=== PATIENT | female | born 1955 | race Caucasian/White ===

== ENCOUNTER 2019-07-24 11:43 | Inpatient (IN) ==
[2019-07-24 13:40] LABS: Basophils # (auto) 0.03 K/uL (0-0.2); Basophils % (auto) 0.3 %; Eosinophils # (auto) 0.03 K/uL (0-0.5); Eosinophils % (auto) 0.3 %; Hematocrit (blood only) 39.8 % (37-47); Hemoglobin 13.5 g/dL (12.0-16.0); Immature Granulocytes # (auto) 0.02 K/uL (0.00-0.02); Immature Granulocytes % (auto) 0.2 %; Lymphocytes # (auto) 1.88 K/uL (1.2-3.4); Lymphocytes % (auto) 15.8 %; Mean Corpuscular Hemoglobin 30.9 pg (25-34); Mean Corpuscular Hgb Conc 33.9 g/dL (32-36); Mean Corpuscular Volume 91.1 fL (80-100); Monocytes # (auto) 0.99 K/uL (0.11-0.59); Monocytes % (auto) 8.3 %; Neutrophils # (auto) 8.97 K/uL (1.4-6.5); Neutrophils % (auto) 75.1 %; Platelet Count 385 K/uL (130-400); RDW Coefficient of Variation 12.3 % (11.5-14.5); RDW Standard Deviation 41.4 fL (36.4-46.3); Red Blood Count 4.37 M/uL (4.2-5.4); White Blood Count 11.92 K/uL (4.8-10.8)
[2019-07-24 13:50] LABS: Partial Thromboplastin Ratio 1.1; Partial Thromboplastin Time 28.7 Seconds (21.0-31.0); Prothrombin Time 10.4 Seconds (9.0-12.0)
[2019-07-24 13:54] LABS: Albumin Level 3.5 gm/dl (3.4-5.0); Calcium 9.1 mg/dl (8.5-10.1); Creatinine Clr Calc Pharmacy 71.9 ml/min; Est GFR (African American) 112.7; Est GFR (Non-African American) 97.3; Potassium 3.5 mmol/L (3.5-5.1)
[2019-07-24 14:00] LABS: Bilirubin,Total 0.7 mg/dl (0.2-1); Globulin 3.4 gm/dl (2.5-4.0); Total Protein 6.9 gm/dl (6.4-8.2)
[2019-07-24] MEDS ORDERED: CONSULT PHARMACY STA (15:40)
[2019-07-24] MEDS ORDERED: DAPTOMYCIN CONSULT ACTIVE PRN (15:45)
[2019-07-24] MEDS ORDERED: PIPERACILL/TAZOBAC CONSULT ACTIVE PRN (15:46)
[2019-07-24] MEDS ORDERED: DICYCLOMINE HCL 10 MG CAP PO PRN (15:48)
[2019-07-24] MEDS ORDERED: PIPERACILLIN/TAZOBACTAM 3.375 GM in DEXTROSE 5% 100 ML IV ONE (16:00)
--- NOTE | 2019-07-24 16:24 | Surgery Consultation ---
Date of Consultation July 24, 2019 Assessment & Plan (1) Stage III pressure ulcer of sacral region: 64y F with a PMH of lewy-body dementia, who has been wheel chair bound for 6mos and recently moved to SNF in May who presents with a progressively worsening sacral wound. Patient was seen in wound care clinic today where superficial debridement was performed, but due to deteriorating state thought patient would benefit from IV abx therapy as well as potential surgical debridement. On examination wound has necrotic tissue centrally, surrounding purulant exudate, and + tunneling. She will benefit from ongoing wound care consult during her admission. Continue IV abx, wound culture taken. Will discuss with Dr. Brasher potentially taking her to the OR this admission for debridement. For now make NPO at midnight if we decide to add her on for tomorrow. History of Present Illness Attending Physician: Robert Padilla MD History of Present Illness This is a 64y F with a PMH of lewy-body dementia, wheel chair bound over the past 6 mos, who presents as a direct admission to [facility] from the wound clinic with a sacral decubitus ulcer. Majority of HPI and ROS obtained from daughter. Apparently her sacral wound developed about 1 year ago. The daughter has some medical knowledge and was caring for it and got it to the point where she thought it was healed. In about march the wound re-presented and the patient since moved to [facility] in May. She was has been evaluated here by our wound clinic since 05/08/19. It has recently deteriorated since her last visit and the wound nurses thought the patient may benefit from surgical debridement and IV abx. Surgery was consulted upon admission for further evaluation. Dr Brasher-patient examined and daughter at the bedside. Patient has been going to the wound clinic since April with worsening decubitus ulcer now with open skin and significant undermining and bone exposed. This will require surgical debridement possibly more than once and wound VAC. Timing of surgery is unsure until we see what medical team and anesthesia feel about the patient's current status. He will need general anesthesia. I have discussed this with the patient's daughter and will also discussed this with her . I will also discussed this with the wound clinic. Allergies Allergy/AdvReac Type Severity Reaction Status Date / Time levofloxacin [From Levaquin] AdvReac Intermediate lethargy Verified 07/24/19 10:36 Home Medications Home Medications Medication Instructions Recorded Confirmed Type albuterol sulfate 90 mcg/actuation 2 puffs INH QID 05/08/19 07/24/19 History aerosol inhaler clobetasol 0.05 % topical foam 1 appln TOP BID 05/08/19 07/24/19 History dicyclomine 10 mg capsule 10 mg PO QID PRN cap 05/08/19 07/24/19 History fluocinonide 0.05 % topical cream 1 appln TOP BID 05/08/19 07/24/19 History montelukast 10 mg tablet 10 mg PO QPM 05/08/19 07/24/19 History pimavanserin 34 mg capsule 34 mg PO DAILY 05/08/19 07/24/19 History rivastigmine 4.6 mg/24 hour 4.6 mg TD DAILY 05/08/19 07/24/19 History transdermal patch sertraline 50 mg tablet 75 mg PO DAILY tab 05/08/19 07/24/19 History valsartan 160 mg tablet 160 mg PO PM 05/08/19 07/24/19 History cefdinir 300 mg capsule 300 mg PO BID #28 cap 07/16/19 07/24/19 Rx Patient History Medical History 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) HTN, goal to be determined (Chronic) Lewy body dementia (Chronic) Panic disorder (Chronic) Pressure ulcer of coccygeal region, stage 2 Surgical History H/O cosmetic surgery S/P hip replacement (Resolved) S/P tonsillectomy (Resolved) Status post appendectomy (Resolved) Social History Preferred Language: Algerian Communication Ability: Effective Visual Impairment: Partially Limited Hearing Ability: Cochlear Implant Beliefs That Will Affect Care: Gnosticism marital status: Current Living Situation: Spouse current occupational status: retired Other Information That Helps Us Care for You: No Feels Safe at Home: Yes Safety Concerns: Feels Safe At This Time Smoking Status: Former smoker Hx Alcohol Use: No Hx Substance Use: No Review of Systems Integumentary: + skin ulcer (sacral decubitus ulcer, worsening in condition) Physical Exam Physical Exam: awake Constitutional: + thin; no acute distress Respiratory: normal respiratory effort Skin: + ulcer (sacral decub, with inferior tunneling, surrounding erythema) sacral wound with central necrotic tissue and surrounding exudate Results & Data Vital Signs (Past 12 Hours) Vital Signs Temp Pulse Resp BP Pulse Ox 07/24/19 15:46 36.7 C 82 16 118/81 96 07/24/19 13:01 37.1 C 84 16 100/60 96 PG Care Time/CCT Total # of Minutes Spent Total Time Spent with Patient: Total time spent is greater than 50% in coordination of care (as documented) at patient's floor/unit and/or counseling patient:
--- NOTE | 2019-07-24 16:27 | History & Physical Report ---
Date of Service July 24, 2019 Assessment & Plan (1) Sacral wound: Pt is 64 y/o F with PMH dementia, HTN, sacral wound presented to hospital as direct admission from wound clinic for worsening sacral wound. Patient was seen in wound clinic today and noted to have worsening sacral wound and had area debrided, and was referred to hospital secondary to worsening and probable need for further debridement. Patient currently on cefdinir. 07/12/2018 buttock wound culture positive Enterobacter, MSSA. Pt afebrile, vitals stable. WBC: 11.9 L spine Xray: No acute fracture or subluxation of the lumbar spine. Age- indeterminate 20% anterior endplate compression deformity of T12. Pelvis Xray: No acute fracture, dislocation or bony erosion to suggest acute osteomyelitis. Demineralized appearance of the bones with partially obscured sacrum and coccyx limits the study. -Wound culture pending -Blood cultures pending -Hold oral cefdinir -Zosyn, daptomycin -NPO midnight -General surgery consult -Wound consult -Nutrition consult -CBC, BMP in am -May need to consider CT pelvis for further evaluation (2) Lewy body dementia: Pt at baseline mental status per family. Follows with Dr Guerrero. -Bite sized food, pt will need assistance with feeding. No h/o aspiration in past -PT/OT when appropriate -Continue rivastigmine, pimavanserin -Monitor for delirium (3) HTN, goal to be determined: -Continue valsartan -Monitor BP (4) Panic disorder: Follows with Dr Domínguez -Continue sertraline (5) Reactive airway disease: -Continue Singulair, albuterol DVT Prophylaxis -SCDs for now Full Code as per discussion with pt's and pt's daughter Follows with Dr Norman for routine care Pt was seen and care coordinated with Dr Padilla. See addendum History of Present Illness Chief Complaint: Worsening sacral wound Primary Care Provider: Luis Fernando Norman MD Pt is 64 y/o F with PMH dementia, HTN, sacral wound presented to hospital as direct admission from wound clinic for worsening sacral wound. History obtained from patient's and patient's records secondary to patient's history of dementia. Patient was seen in wound clinic today and noted to have worsening sacral wound and had area debrided, and was referred to hospital secondary to worsening and probable need for further debridement. Patient currently on cefdinir. 07/12/2018 buttock wound culture positive Enterobacter,MSSA. reports patient's temperature has been reported as normal at her personal mcc. Reports patient currently at her baseline mental status. States that patient able to eat and drink however has varying appetite and typically has poor appetite. Recently has started protein supplement daily. Denies any history of aspiration and reports pt on regular diet however patient needs food in bite size pieces and assistance with feeding. Reports pt bed bound and reports that have been attempting alternating position changes and offloading. States pt has been voicing back pain for a couple of months however unsure if pain in back or coming from sacral ulcer secondary to pt's dementia. Denies any known trauma/injury. Denies any recent reports of vomiting or diarrhea or noted SOB from personal care facility. Allergies Allergy/AdvReac Type Severity Reaction Status Date / Time levofloxacin [From Levaquin] AdvReac Intermediate lethargy Verified 07/24/19 10:36 Home Medications Home Medications Medication Instructions Recorded Confirmed Type albuterol sulfate 90 mcg/actuation 2 puffs INH QID 05/08/19 07/24/19 History aerosol inhaler clobetasol 0.05 % topical foam 1 appln TOP BID 05/08/19 07/24/19 History dicyclomine 10 mg capsule 10 mg PO QID PRN cap 05/08/19 07/24/19 History fluocinonide 0.05 % topical cream 1 appln TOP BID 05/08/19 07/24/19 History montelukast 10 mg tablet 10 mg PO QPM 05/08/19 07/24/19 History pimavanserin 34 mg capsule 34 mg PO DAILY 05/08/19 07/24/19 History rivastigmine 4.6 mg/24 hour 4.6 mg TD DAILY 05/08/19 07/24/19 History transdermal patch sertraline 50 mg tablet 75 mg PO DAILY tab 05/08/19 07/24/19 History valsartan 160 mg tablet 160 mg PO PM 05/08/19 07/24/19 History cefdinir 300 mg capsule 300 mg PO BID #28 cap 07/16/19 07/24/19 Rx lorazepam 0.5 mg PO BID PRN 07/24/19 07/24/19 History Past Med/Surg History Medical History 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) HTN, goal to be determined (Chronic) Lewy body dementia (Chronic) Panic disorder (Chronic) Pressure ulcer of coccygeal region, stage 2 Surgical History H/O cosmetic surgery S/P hip replacement (Resolved) S/P tonsillectomy (Resolved) Status post appendectomy (Resolved) Family History Other Coronary heart disease Social History Preferred Language: Faroese Communication Ability: Effective Visual Impairment: Partially Limited Hearing Ability: Cochlear Implant Beliefs That Will Affect Care: Hoahaoism marital status: Current Living Situation: Spouse current occupational status: retired Other Information That Helps Us Care for You: No Feels Safe at Home: Yes Safety Concerns: Feels Safe At This Time Smoking Status: Former smoker Do You Dip or Chew Tobacco: No ; Hx Alcohol Use: No Hx Substance Use: No Review of Systems Review of Systems: Unobtainable due to cognitive status Physical Exam Physical Exam: General: no acute distress, cachectic, chronically ill female Head: normocephalic, atraumatic Eyes: PERRL, EOM's intact, conjunctiva non-injected, anicteric ENT: normal inspection external ears, nose, mucous membranes moist Neck: supple, trachea midline, no apparent tenderness to palpation Lungs: clear, no respiratory distress, no wheezing/rhonchi/rales CV: RRR, no murmur, no pretibial edema Abd: normal BS, soft, non-tender Back: no discoloration, no apparent tenderness to palpation of spinal processes Ext: no cyanosis, no significant edema, pt extremities contracted Neuro: Alert, pleasant and cooperative Skin: warm, dry; sacrum +erythema with deep wound with suspected bone visible Results & Data Vital Signs (Past 12 Hours) Vital Signs Temp Pulse Resp BP Pulse Ox 07/24/19 15:46 36.7 C 82 16 118/81 96 07/24/19 13:01 37.1 C 84 16 100/60 96 Laboratory Results Short CBC 07/24/19 Range/Units 13:25 WBC 11.92 H (4.8-10.8) K/uL Hgb 13.5 (12.0-16.0) g/dL Hct 39.8 (37-47) % Plt Count 385 (130-400) K/uL BMP 07/24/19 13:25 Sodium 138 Potassium 3.5 Chloride 105 Carbon Dioxide 26 BUN 12 Creatinine 0.57 L Glucose 95 Calcium 9.1 Liver Function 07/24/19 Range/Units 13:25 Total Bilirubin 0.7 (0.2-1) mg/dl AST 11 L (15-37) U/L ALT 13 (12-78) U/L Alkaline Phosphatase 63 (45-117) U/L Albumin 3.5 (3.4-5.0) gm/dl Diagnostic Findings L Spine Xray: IMPRESSION: 1. No acute fracture or subluxation of the lumbar spine. 2. Age-indeterminate 20% anterior endplate compression deformity of T12. 3. Demineralized appearance of the bones with degenerative changes as above. Pelvis Xray: IMPRESSION: 1. No acute fracture, dislocation or bony erosion to suggest acute osteomyelitis. 2. Demineralized appearance of the bones with partially obscured sacrum and coccyx limits the study. If there is further clinical concern for possible under lying acute osteomyelitis, CT of the pelvis would have a greater sensitivity. Supervising Physician Co-Signing Physician Notes HISTORY: Record reviewed. Patient interviewed and examined. Care coordinated with Elana Truong PA-C. Please refer to her documentation for complete history. Briefly, 64-year-old female with history of Lewy body dementia and other problems. Currently living in a personal mcc ([facility]); essentially bed bound. Admitted for worsening sacral decubitus ulcer. EXAM: General- no distress Lungs- clear to auscultation; no respiratory distress Cardiovascular- RRR; no murmur; no gallop; no JVD; no pretibial edema Abdomen- + bowel sounds, soft, nontender Extremities- no cyanosis; no calf tenderness Neuro- alert, oriented to person and hospital; moderate cogwheel rigidity of upper extremities Skin- sacral decubitus ulcer, about 2 cm, at least stage III, surrounding erythema DATA: WBC 11,920 Other lab studies as noted. ASSESSMENT AND PLAN: Decubitus sacral ulcer. IV antibiotics. Consult Wound Care Nursing and General Surgery. Reposition at least q 2 hours. Lewy body dementia. Avoid anticholinergic and antipsychotic meds. PT / OT as tolerated. Please refer to SCOTT Truong's documentation for discussion of other issues.
[2019-07-24] MEDS: DAPTOmycin 200 MG in SYRINGE 0 ML IV SCH (16:45)
[2019-07-24] MEDS: ALBUTEROL HFA 8 GM INHALER INH SCH ×2 (16:46→20:05)
--- NOTE | 2019-07-24 17:54 | XRay Report ---
XR pelvis 1-2V routine HISTORY: 64 years-old Female sacral ulcer, r/o osteo acute sacral decubitus ulcer COMPARISON: None available TECHNIQUE: AP view of the pelvis FINDINGS: Demineralized appearance of the bones. Moderate left hip osteoarthritis. Right hip total joint arthro plasty. Degenerative changes of the lumbar spine. Pelvic basin calcifications suggest phleboliths. Sa dixie is partially obscured by gas within the sigmoid and rectum. No definitive bony erosion. No acute fracture or dislocation. IMPRESSION: 1. No acute fracture, dislocation or bony erosion to suggest acute osteomyelitis. 2. Demineralized appearance of the bones with partially obscured sacrum and coccyx limits the study. If there is further clinical concern for possible underlying acute osteomyelitis, CT of the pelvis wo uld have a greater sensitivity. The above report was generated using voice recognition software. It may contain grammatical, syntax o r spelling errors. Electronically signed by: Maurice Bianchi M.D. 07/24/2019 5:53 PM
--- NOTE | 2019-07-24 17:56 | XRay Report ---
XR lumbar spine 2-3V HISTORY: 64 years-old Female c/o back pain, has sacral ulcer acute pelvic and low back pain COMPARISON: Radiographs of the pelvis of same day TECHNIQUE: 4 views of the lumbar spine FINDINGS: Demineralized appearance of the bones. Right hip total joint arthroplasty. 20% anterior endplate comp ression deformity of the T12 vertebral body without retropulsion. No acute fracture or subluxation of the lumbar spine. Mostly mild multilevel disc space narrowing with multilevel moderate to severe fac et arthrosis and minimal spondylitic spurring. Calcified plaque of the abdominal aorta. IMPRESSION: 1. No acute fracture or subluxation of the lumbar spine. 2. Age-indeterminate 20% anterior endplate compression deformity of T12. 3. Demineralized appearance of the bones with degenerative changes as above. The above report was generated using voice recognition software. It may contain grammatical, syntax o r spelling errors. Electronically signed by: Maurice Bianchi M.D. 07/24/2019 5:55 PM
[2019-07-24] MEDS: MONTELUKAST SODIUM 10 MG TABLET PO SCH (20:04)
[2019-07-24] MEDS: VALSARTAN 80 MG TAB PO SCH (20:04)
[2019-07-24] MEDS: ACETAMINOPHEN 325 MG TAB PO PRN (20:08)
[2019-07-24] MEDS ORDERED: LORazepam 0.5 MG TAB PO PRN (20:28)
--- NOTE | 2019-07-24 20:49 | Anesthesiology Consultation ---
Date of Service July 24, 2019 Assessment & Plan (1) Encounter for pre-operative examination: Chart Review Chart Review: Acceptable Risk for Surgery and Patient NOT seen in Pre Admission Testing consent obtained by patients . all questions answered Consults Requested none History Height/Weight Height: 5 ft 4 in Weight: 46.3 kg Allergies Allergy/AdvReac Type Severity Reaction Status Date / Time levofloxacin [From Levaquin] AdvReac Intermediate lethargy Verified 07/24/19 10:36 Medications Home Medications Medication Instructions Recorded Confirmed Last Taken albuterol sulfate 90 mcg/actuation 2 puffs INH QID 05/08/19 07/24/19 07/24/19 09:00 aerosol inhaler clobetasol 0.05 % topical foam 1 appln TOP BID 05/08/19 07/24/19 Unknown dicyclomine 10 mg capsule 10 mg PO QID PRN cap 05/08/19 07/24/19 07/24/19 09:00 fluocinonide 0.05 % topical cream 1 appln TOP BID 05/08/19 07/24/19 Unknown montelukast 10 mg tablet 10 mg PO QPM 05/08/19 07/24/19 07/23/19 20:00 pimavanserin 34 mg capsule 34 mg PO DAILY 05/08/19 07/24/19 07/24/19 09:00 rivastigmine 4.6 mg/24 hour 4.6 mg TD DAILY 05/08/19 07/24/19 07/24/19 09:00 transdermal patch sertraline 50 mg tablet 75 mg PO DAILY tab 05/08/19 07/24/19 07/24/19 09:00 valsartan 160 mg tablet 160 mg PO PM 05/08/19 07/24/19 07/23/19 20:00 cefdinir 300 mg capsule 300 mg PO BID #28 cap 07/16/19 07/24/19 07/23/19 20:00 lorazepam 0.5 mg PO BID PRN 07/24/19 07/24/19 Unknown Active Medications Generic Name Dose Route Start Last Admin Trade Name Freq PRN Reason Stop Dose Admin Acetaminophen 650 mg 07/24/19 12:42 07/24/19 20:08 Tylenol PO 08/23/19 12:41 650 mg Q4H PRN Administration Pain or Fever Albuterol 2 puffs 07/24/19 17:00 07/24/19 20:05 Ventolin Hfa INH 08/23/19 16:59 2 puffs QID PEGGY Administration Dicyclomine HCl 10 mg 07/24/19 15:48 07/24/19 20:05 Bentyl PO 08/23/19 15:47 10 mg QID PRN Administration Abdominal Pain Daptomycin 200 mg/ Syringe 4 mls @ 2 mls/min 07/24/19 16:30 07/24/19 16:45 IV 08/03/19 16:29 2 mls/min DAILY@1600 PEGGY Administration Protocol Miscellaneous 1 ea 07/24/19 18:00 07/24/19 16:46 Order Awaiting Action N/A 08/23/19 17:59 Not Given QS PEGGY Miscellaneous 1 ea 07/24/19 16:00 07/24/19 16:19 Order Awaiting Action N/A 08/23/19 15:59 Not Given QS PEGGY Montelukast Sodium 10 mg 07/24/19 21:00 07/24/19 20:04 Singulair PO 08/23/19 20:59 10 mg QPM PEGGY Administration Valsartan 160 mg 07/24/19 21:00 07/24/19 20:04 Diovan PO 08/23/19 20:59 160 mg PM PEGGY Administration Past Medical History Medical History 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) HTN, goal to be determined (Chronic) Lewy body dementia (Chronic) Panic disorder (Chronic) Pressure ulcer of coccygeal region, stage 2 Exercise / Class Metabolic Activity IV < 2 Limit ADL/Bedbound Past Family History Family History Other Coronary heart disease Past Surgical History Surgical History H/O cosmetic surgery S/P hip replacement (Resolved) S/P tonsillectomy (Resolved) Status post appendectomy (Resolved) Past Anesthesia History No Hx of Anesthesia Complications and No Family Hx of Anesthesia Complications History of PONV No Hx of PONV and No Hx of Motion Sickness Social History Smoking Status: Former smoker Do You Dip or Chew Tobacco: No Hx Alcohol Use: No Hx Substance Use: No Physical Exam Vital Signs Last Vital Signs Temp 36.9 C 07/24/19 19:09 Pulse 87 07/24/19 19:09 Resp 16 07/24/19 19:09 BP 125/83 07/24/19 19:09 Pulse Ox 97 07/24/19 19:09 Constitutional + cachectic and + altered mental status ENMT Mouth: + TMJ abnormality and + dental restorations Thyromental Distance: < 3.5 Finger Breadths Mallampati Class: III Respiratory normal respiratory effort Auscultation: lungs clear to auscultation bilaterally Cardiovascular Rate/Rhythm: regular rate and regular rhythm Musculoskeletal Extremities: + limited ROM of extremities; + extremities abnormal to inspection pt with contractures Neurologic moves all extremities Motor/Sensory: + sensory deficit Psychiatric Orientation: alert; + not oriented x 3 Testing Laboratory Results 07/24/19 13:25 07/24/19 13:25 PT 10.4 Seconds (9.0-12.0) 07/24/19 13:25 INR 1.0 (0.9-1.1) 07/24/19 13:25 APTT 28.7 Seconds (21.0-31.0) 07/24/19 13:25
[2019-07-24] MEDS: PIPERACILLIN/TAZOBACTAM 3.375 GM in DEXTROSE 5% 100 ML IV SCH (21:06)
[2019-07-25] MEDS: PIPERACILLIN/TAZOBACTAM 3.375 GM in DEXTROSE 5% 100 ML IV SCH ×3 (05:47→21:38)
--- NOTE | 2019-07-25 06:21 | Surgery Progress Note ---
Date of Service July 25, 2019 Subjective resting comfortably- min pain not on OR schedule yet- will discuss with wound clinic this am, possibly plastics will decide this am- may take to OR tomorrow- NPO for now Results & Data Vital Signs (Past 12 Hours) Vital Signs Temp Pulse Pulse Resp BP BP Pulse Ox 07/25/19 04:20 36.7 C 65 16 121/69 93 07/24/19 23:22 37.0 C 85 20 161/89 H 94 07/24/19 22:20 93 H 07/24/19 19:09 36.9 C 87 16 125/83 97 PG Care Time/CCT Total # of Minutes Spent Total Time Spent with Patient: Total time spent is greater than 50% in coordination of care (as documented) at patient's floor/unit and/or counseling patient:
--- NOTE | 2019-07-25 06:34 | Surgery Progress Note ---
Date of Service July 25, 2019 Subjective awake, alert- looks normal had some mild pain- given Morphine abd distended- some bs but decreased check film- discussed benefit of NG- refuses I don't think he's progressed much, check labs Results & Data Vital Signs (Past 12 Hours) Vital Signs Temp Pulse Pulse Resp BP BP Pulse Ox 07/25/19 04:20 36.7 C 65 16 121/69 93 07/24/19 23:22 37.0 C 85 20 161/89 H 94 07/24/19 22:20 93 H 07/24/19 19:09 36.9 C 87 16 125/83 97 PG Care Time/CCT Total # of Minutes Spent Total Time Spent with Patient: Total time spent is greater than 50% in coordination of care (as documented) at patient's floor/unit and/or counseling patient:
[2019-07-25 07:27] LABS: Hematocrit (blood only) 37.3 % (37-47); Hemoglobin 12.8 g/dL (12.0-16.0); Mean Corpuscular Hemoglobin 30.5 pg (25-34); Mean Corpuscular Hgb Conc 34.3 g/dL (32-36); Mean Corpuscular Volume 88.8 fL (80-100); Mean Platelet Volume 8.2 fL (7.4-10.4); Platelet Count 358 K/uL (130-400); RDW Coefficient of Variation 12.5 % (11.5-14.5); RDW Standard Deviation 39.8 fL (36.4-46.3); White Blood Count 12.17 K/uL (4.8-10.8)
[2019-07-25 07:58] LABS: BUN Creatinine Ratio 14.1 (10-20); Calcium 9.5 mg/dl (8.5-10.1); Creatinine Clr Calc Pharmacy 68.6 ml/min; Est GFR (African American) 111.5; Est GFR (Non-African American) 96.2; Potassium 3.4 mmol/L (3.5-5.1)
[2019-07-25] MEDS: SERTRALINE HCL 50 MG TABLET PO SCH (08:29)
[2019-07-25] MEDS: ALBUTEROL HFA 8 GM INHALER INH SCH ×4 (08:30→20:18)
[2019-07-25] MEDS ORDERED: IOVERSOL 100ml IV PRN (09:03)
--- NOTE | 2019-07-25 09:24 | CT Scan Report ---
CT SCAN OF THE PELVIS WITH IV CONTRAST CLINICAL HISTORY: Sacral decubitus ulcer. COMPARISON STUDY: Pelvic radiograph dated 07/24/2019. TECHNIQUE: CT scan of the pelvis is performed 4 the pelvic inlet to the proximal femora following the IV administration of 94 cc of Optiray 320. Images are reviewed in the axial, sagittal, and coronal p lanes. IV contrast was administered without complication. A dose lowering technique was utilized adh ering to the principles of ALARA. The examination is significantly degraded by streak artifact from a right hip arthroplasty. CT DOSE: 361.58 mGy.cm FINDINGS: The skeletal structures are osteopenic. A right hip arthroplasty is in place. Advanced arthritic rico ge is noted in the left hip. Degenerative sclerosis is noted in the sacroiliac joints, right greater than left. Lumbosacral spondylosis is partially imaged. No lytic or blastic lesion is identified. The re is no bony erosion or periostitis identified. There is infiltration of the soft tissues overlying the sacrum with associated dermal thickening. A small focus of subcutaneous gas is seen on image #421 . No organized fluid collection is clearly identified. There is symmetric atrophy of the regional mus culature. Evaluation of the pelvis is significantly degraded by streak artifact from a right hip arthroplasty. The bladder is partially decompressed around a Salmeron catheter. Foci of intraluminal gas are noted. Th e bladder wall appears thickened and hyperemic. The uterus and adnexa are normal as visualized. There is no pelvic sidewall or inguinal adenopathy. The iliac vessels are patent. Atherosclerotic calcific ation is noted in the distal abdominal aorta. Visualized loops of small bowel and colon are normal in caliber. IMPRESSION: 1. There is induration/inflammation of the soft tissues overlying the sacrum with associated dermal t hickening. This is consistent with cellulitis and the reported history of a sacral decubitus ulcer. 2. No organized fluid collection is identified to suggest abscess. 3. No bony erosion or periostitis is clearly seen in the underlying sacrum to indicate osteomyelitis. 4. The bladder wall appears thickened and hyperemic. Correlate clinically and with urinalysis for christ dence of cystitis. 5. Additional findings as above. Electronically signed by: Osbaldo Davidson M.D. 07/25/2019 9:23 AM
[2019-07-25] MEDS: PIMAVANSERIN TARTRATE 34 MG PO SCH (09:46)
[2019-07-25] MEDS: RIVASTIGMINE 4.6 MG/24 HR TD SCH (09:46)
[2019-07-25] MEDS: REMOVE RIVASTIGMINE PATCH SCH (09:46)
--- NOTE | 2019-07-25 10:47 | Infectious Disease Consult ---
Date of Consultation July 25, 2019 Assessment & Plan (1) Sacral wound: 64-year-old female with a large poorly healing sacral decubitus ulcer, now awaiting surgical debridement. Previous cultures positive for Enterobacter and methicillin sensitive staph aureus. Pending further culture results and operative findings, current antibiotics appropriate. Will adjust once culture results are available. Length of IV antibiotics yet to be determined. Will follow. History of Present Illness Reason for Consultation: Sacral wound Attending Physician: Coby Flores MD History of Present Illness 64-year-old female with history of hypertension, dementia, who is had 1+ month history of poorly healing sacral decubitus ulcer. Being followed at the wound care center. Previous cultures were positive for Enterobacter and methicillin sensitive staph aureus, and patient has been on oral Omnicef. However was seen at the wound care center and was noted to have significant deterioration, and was admitted to the hospital for IV antibiotics and probable surgical debridement. No report of significant fever, chills, or other new systemic complaints. Currently patient states she is comfortable, pain-free, and is afebrile. Cultures are pending. CT scan of the pelvis shows large decubitus ulcer, no obvious abscess or osteomyelitis. Currently being treated empirically with daptomycin and Zosyn. Allergies Allergy/AdvReac Type Severity Reaction Status Date / Time levofloxacin [From Levaquin] AdvReac Intermediate lethargy Verified 07/24/19 10:36 Home Medications Home Medications Medication Instructions Recorded Confirmed Type albuterol sulfate 90 mcg/actuation 2 puffs INH QID 05/08/19 07/24/19 History aerosol inhaler clobetasol 0.05 % topical foam 1 appln TOP BID 05/08/19 07/24/19 History dicyclomine 10 mg capsule 10 mg PO QID PRN cap 05/08/19 07/24/19 History fluocinonide 0.05 % topical cream 1 appln TOP BID 05/08/19 07/24/19 History montelukast 10 mg tablet 10 mg PO QPM 05/08/19 07/24/19 History pimavanserin 34 mg capsule 34 mg PO DAILY 05/08/19 07/24/19 History rivastigmine 4.6 mg/24 hour 4.6 mg TD DAILY 05/08/19 07/24/19 History transdermal patch sertraline 50 mg tablet 75 mg PO DAILY tab 05/08/19 07/24/19 History valsartan 160 mg tablet 160 mg PO PM 05/08/19 07/24/19 History cefdinir 300 mg capsule 300 mg PO BID #28 cap 07/16/19 07/24/19 Rx lorazepam 0.5 mg PO BID PRN 07/24/19 07/24/19 History Patient History Medical History 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) HTN, goal to be determined (Chronic) Lewy body dementia (Chronic) Panic disorder (Chronic) Pressure ulcer of coccygeal region, stage 2 Surgical History H/O cosmetic surgery S/P hip replacement (Resolved) S/P tonsillectomy (Resolved) Status post appendectomy (Resolved) Family History Other Coronary heart disease Social History Preferred Language: Swedish Communication Ability: Effective Visual Impairment: Partially Limited Hearing Ability: Cochlear Implant Beliefs That Will Affect Care: Presybeterian marital status: Current Living Situation: Spouse current occupational status: retired Other Information That Helps Us Care for You: No Feels Safe at Home: Yes Safety Concerns: Feels Safe At This Time Smoking Status: Former smoker Do You Dip or Chew Tobacco: No ; Hx Alcohol Use: No Hx Substance Use: No Review of Systems Review of Systems: All systems reviewed & are unremarkable except as noted in HPI & below Physical Exam Constitutional: WD/WN, vitals as above no acute distress Eyes: PERRL, conjunctivae normal, anicteric sclerae ENMT: external ear and nose normal, oropharynx normal Neck: trachea midline, no thyromegaly neck nontender Respiratory: normal respiratory effort, lungs clear to auscultation no respiratory distress Cardiovascular: RRR, no murmur, no edema Heart Sounds: no gallop and no cardiac rub Gastrointestinal (Abdomen): normal bowel sounds, soft, nontender, no hepatosplenomegaly Musculoskeletal: Head/Neck/Chest: normocephalic, head atraumatic and neck supple Skin: no rashes, warm and dry + wound (Large sacral decubitus ulcer with some purulent debris) Neurologic: moves all extremities and awake; no meningeal signs Psychiatric: A+Ox3, euthymic affect Lymphatic: no cervical or axillary lymphadenopathy no inguinal lymphadenopathy Results & Data Vital Signs (Past 12 Hours) Vital Signs Temp Pulse Resp BP Pulse Ox 07/25/19 07:28 36.9 C 95 H 16 152/78 H 95 07/25/19 04:20 36.7 C 65 16 121/69 93 07/24/19 23:22 37.0 C 85 20 161/89 H 94 Laboratory Results Short CBC 07/24/19 07/25/19 Range/Units 13:25 07:11 WBC 11.92 H 12.17 H (4.8-10.8) K/uL Hgb 13.5 12.8 (12.0-16.0) g/dL Hct 39.8 37.3 (37-47) % Plt Count 385 358 (130-400) K/uL BMP 07/24/19 07/25/19 13:25 07:11 Sodium 138 137 Potassium 3.5 3.4 L Chloride 105 105 Carbon Dioxide 26 25 BUN 12 8 Creatinine 0.57 L 0.59 L Glucose 95 108 H Calcium 9.1 9.5 Liver Function 07/24/19 Range/Units 13:25 Total Bilirubin 0.7 (0.2-1) mg/dl AST 11 L (15-37) U/L ALT 13 (12-78) U/L Alkaline Phosphatase 63 (45-117) U/L Albumin 3.5 (3.4-5.0) gm/dl Diagnostic Findings Microbiology 07/24/19 16:15 Sacrum Gram Stain - Final CT SCAN OF THE PELVIS WITH IV CONTRAST CLINICAL HISTORY: Sacral decubitus ulcer. COMPARISON STUDY: Pelvic radiograph dated 07/24/2019. TECHNIQUE: CT scan of the pelvis is performed 4 the pelvic inlet to the proximal femora following the IV administration of 94 cc of Optiray 320. Images are reviewed in the axial, sagittal, and coronal planes. IV contrast was administered without complication. A dose lowering technique was utilized adhering to the principles of ALARA. The examination is significantly degraded by streak artifact from a right hip arthroplasty. CT DOSE: 361.58 mGy.cm FINDINGS: The skeletal structures are osteopenic. A right hip arthroplasty is in place. Advanced arthritic change is noted in the left hip. Degenerative sclerosis is noted in the sacroiliac joints, right greater than left. Lumbosacral spondylosis is partially imaged. No lytic or blastic lesion is identified. There is no bony erosion or periostitis identified. There is infiltration of the soft tissues overlying the sacrum with associated dermal thickening. A small focus of rankin bcutaneous gas is seen on image #421. No organized fluid collection is clearly identified. There is symmetric atrophy of the regional musculature. Evaluation of the pelvis is significantly degraded by streak artifact from a right hip arthroplasty. The bladder is partially decompressed around a Salmeron catheter. Foci of intraluminal gas are noted. The bladder wall appears thickened and hyperemic. The uterus and adnexa are normal as visualized. There is no pelvic sidewall or inguinal adenopathy. The iliac vessels are patent. Atherosclerotic calcification is noted in the distal abdominal aorta. Visualized loops of small bowel and colon are normal in caliber. IMPRESSION: 1. There is induration/inflammation of the soft tissues overlying the sacrum with associated dermal thickening. This is consistent with cellulitis and the reported history of a sacral decubitus ulcer. 2. No organized fluid collection is identified to suggest abscess. 3. No bony erosion or periostitis is clearly seen in the underlying sacrum to indicate osteomyelitis. 4. The bladder wall appears thickened and hyperemic. Correlate clinically and with urinalysis for evidence of cystitis. 5. Additional findings as above. Electronically signed by: Osbaldo Davidson M.D. 07/25/2019 9:23 AM Dictated: 07/25/19 0912 PG Care Time/CCT Total # of Minutes Spent Total Time Spent with Patient: Total time spent is greater than 50% in coordination of care (as documented) at patient's floor/unit and/or counseling patient:
[2019-07-25] MEDS: DAPTOmycin 200 MG in SYRINGE 0 ML IV SCH (15:55)
--- NOTE | 2019-07-25 16:53 | Hospitalist Progress Note ---
Date of Service July 25, 2019 Assessment & Plan (1) Sacral wound: Pt is 64 y/o F with PMH dementia, HTN, sacral wound presented to hospital as direct admission from wound clinic for worsening sacral wound. 07/12/2018 buttock wound culture positive Enterobacter, MSSA. L spine Xray: No acute fracture or subluxation of the lumbar spine. Age- indeterminate 20% anterior endplate compression deformity of T12. Pelvis Xray: No acute fracture, dislocation or bony erosion to suggest acute os teomyelitis. Demineralized appearance of the bones with partially obscured sacrum and coccyx limits the study. -Wound culture ordered: pin point growth -reincubating -on IV Zosyn, daptomycin -appreciate input from ID Dr Browne -General surgery consulted -CT of pelvis shows -sacral decubitus ulcer /no evidence of osteomyelitis /no fluid collection suggestive of abscess -pt is continued with broad spectrum IV abx may need fpc IV Abx -will follow ID recommendation wound care consulted DYSPHAGIA /ASPIRATION : due to advanced Dementia Pt noted to have glenn aspiration during meal -coughing with food ordered speech eval pt will be kept NPO till speech eval ( very high risk for aspiration ) (2) Lewy body dementia: Pt at baseline mental status per family. Follows with Dr Guerrero. -Continue rivastigmine, pimavanserin - (3) HTN, goal to be determined: -Continue valsartan -Monitor BP (4) Panic disorder: Follows with Dr Domínguez -Continue sertraline (5) Reactive airway disease: -Continue Singulair, albuterol DVT Prophylaxis -SCDs for now Full Code as per discussion with pt's and pt's daughter Follows with Dr Norman for routine care Subjective no sign of distress baseline advanced dementia no fever or chills Physical Exam Constitutional: WD/WN, vitals as above + thin, + cachectic and + altered mental status; no acute distress Eyes: PERRL, conjunctivae normal, anicteric sclerae Neck: trachea midline, no thyromegaly Respiratory: normal respiratory effort, lungs clear to auscultation normal respiratory effort; no respiratory distress Cardiovascular: RRR, no murmur, no edema Gastrointestinal (Abdomen): normal bowel sounds, soft, nontender, no hepatosplenomegaly Musculoskeletal: Head/Neck/Chest: normocephalic, head atraumatic and neck supple Extremities: + limited ROM of extremities; + extremities abnormal to inspection Skin: no rashes, warm and dry + ulcer (sacral decub, with inferior tunneling, surrounding erythema) and + wound (Large sacral decubitus ulcer with some purulent debris) Neurologic: moves all extremities and awake Psychiatric: Orientation: alert; + not oriented x 3 Results & Data Vital Signs (Past 12 Hours) Vital Signs Temp Pulse Resp BP Pulse Ox 07/25/19 16:05 37.1 C 136/81 07/25/19 15:01 37.7 C H 80 16 95/61 L 96 07/25/19 07:28 36.9 C 95 H 16 152/78 H 95
[2019-07-25] MEDS: VALSARTAN 80 MG TAB PO SCH (20:19)
[2019-07-25] MEDS: MONTELUKAST SODIUM 10 MG TABLET PO SCH (20:20)
--- NOTE | 2019-07-25 20:53 | Wound Consultation ---
Date of Consultation July 25, 2019 Assessment & Plan (1) Stage III pressure ulcer of sacral region: Patient with stage 3 sacral pressure ulcer. Continue to dress with aquacel Ag. For surgical debridement tomorrow with Dr. Brasher. Will follow after surgery for wound vac placement. Thank you for allowing me to participate in the care of this patient. Please don't hesitate to call with any questions. History of Present Illness Reason for Consultation: stage 3 pressure ulcer sacral region Attending Physician: Coby Flores MD History of Present Illness This is a 62 year old female who was direct admitted from the wound clinic due to deterioration of her wound. She has a history of htn and lewy body dementia. Surgery and ID are following. Allergies Allergy/AdvReac Type Severity Reaction Status Date / Time levofloxacin [From Levaquin] AdvReac Intermediate lethargy Verified 07/24/19 10:36 Home Medications Home Medications Medication Instructions Recorded Confirmed Type albuterol sulfate 90 mcg/actuation 2 puffs INH QID 05/08/19 07/24/19 History aerosol inhaler clobetasol 0.05 % topical foam 1 appln TOP BID 05/08/19 07/24/19 History dicyclomine 10 mg capsule 10 mg PO QID PRN cap 05/08/19 07/24/19 History fluocinonide 0.05 % topical cream 1 appln TOP BID 05/08/19 07/24/19 History montelukast 10 mg tablet 10 mg PO QPM 05/08/19 07/24/19 History pimavanserin 34 mg capsule 34 mg PO DAILY 05/08/19 07/24/19 History rivastigmine 4.6 mg/24 hour 4.6 mg TD DAILY 05/08/19 07/24/19 History transdermal patch sertraline 50 mg tablet 75 mg PO DAILY tab 05/08/19 07/24/19 History valsartan 160 mg tablet 160 mg PO PM 05/08/19 07/24/19 History cefdinir 300 mg capsule 300 mg PO BID #28 cap 07/16/19 07/24/19 Rx lorazepam 0.5 mg PO BID PRN 07/24/19 07/24/19 History Patient History Medical History 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) HTN, goal to be determined (Chronic) Lewy body dementia (Chronic) Panic disorder (Chronic) Pressure ulcer of coccygeal region, stage 2 Surgical History H/O cosmetic surgery S/P hip replacement (Resolved) S/P tonsillectomy (Resolved) Status post appendectomy (Resolved) Family History Other Coronary heart disease Social History Preferred Language: Welsh Communication Ability: Impaired Visual Impairment: Partially Limited Hearing Ability: Cochlear Implant Beliefs That Will Affect Care: Christian marital status: Current Living Situation: Spouse current occupational status: retired Other Information That Helps Us Care for You: No Feels Safe at Home: Yes Safety Concerns: Feels Safe At This Time Smoking Status: Former smoker Do You Dip or Chew Tobacco: No ; Hx Alcohol Use: No Hx Substance Use: No Review of Systems Review of Systems: All systems reviewed & are unremarkable except as noted in HPI & below Physical Exam Physical Exam: Sacral wound measuring as recorded in nursing documentation. Wound is covered with fibrin, slough and necrotic tissue. There is moderate drainage and foul odor. Neurologic: awake (Son at bedside. Patient sleeping on and off); not confused Psychiatric: Orientation: oriented to person, oriented to place and cooperative Results & Data Vital Signs (Past 12 Hours) Vital Signs Temp Pulse Resp BP Pulse Ox 07/25/19 20:17 88 113/69 07/25/19 19:50 37.8 C H 86 18 99/61 L 96 07/25/19 16:05 37.1 C 136/81 07/25/19 15:01 37.7 C H 80 16 95/61 L 96 PG Care Time/CCT Total # of Minutes Spent Total Time Spent with Patient: Total time spent is greater than 50% in coordination of care (as documented) at patient's floor/unit and/or counseling patient:
[2019-07-26] MEDS: PIPERACILLIN/TAZOBACTAM 3.375 GM in DEXTROSE 5% 100 ML IV SCH ×3 (05:37→21:37)
--- NOTE | 2019-07-26 06:50 | History & Physical Bridge Note ---
Date of Service July 26, 2019 History & Physical Bridge Note I have examined the patient, reviewed the History & Physical and in the interval since the performance of the History & Physical I have noted the following changes of clinical significance: no changes noted
[2019-07-26] MEDS: SERTRALINE HCL 50 MG TABLET PO SCH (07:43)
[2019-07-26] MEDS: RIVASTIGMINE 4.6 MG/24 HR TD SCH (07:45)
[2019-07-26] MEDS: PIMAVANSERIN TARTRATE 34 MG PO SCH (07:45)
[2019-07-26] MEDS: REMOVE RIVASTIGMINE PATCH SCH (07:45)
[2019-07-26] MEDS: ALBUTEROL HFA 8 GM INHALER INH SCH ×4 (07:45→19:48)
[2019-07-26 08:06] LABS: Creatinine Clr Calc Pharmacy 70.3 ml/min; Est GFR (African American) 109.1; Est GFR (Non-African American) 94.1
--- NOTE | 2019-07-26 10:43 | Hospitalist Progress Note ---
Date of Service July 26, 2019 Assessment & Plan (1) Sacral wound: per Dr. Flores notes: Pt is 64 y/o F with PMH dementia, HTN, sacral wound presented to hospital as direct admission from wound clinic for worsening sacral wound. 07/12/2018 buttock wound culture positive Enterobacter, MSSA. L spine Xray: No acute fracture or subluxation of the lumbar spine. Age- indeterminate 20% anterior endplate compression deformity of T12. Pelvis Xray: No acute fracture, dislocation or bony erosion to suggest acute osteomyelitis. Demineralized appearance of the bones with partially obscured sacrum and coccyx limits the study. CT of pelvis shows -sacral decubitus ulcer /no evidence of osteomyelitis /no fluid collection suggestive of abscess Wound cultures: reincubating Blood cultures: negative General Surgery consulted, for Debridement today ID consulted, continue Daptomycin and Zosyn IV Wound care consulted ASPIRATION RISK due to advanced Dementia Pt noted to have glenn aspiration during meal -coughing with food S/P Speech Eval: soft cut diet (2) Lewy body dementia: - mental status at baseline -Continue rivastigmine, pimavanserin (3) HTN, goal to be determined: - BP borderline, hold Valsartan -Monitor BP (4) Panic disorder: Follows with Dr Domínguez -Continue sertraline (5) Reactive airway disease: -respiratory status stable -Continue Singulair, albuterol DVT Prophylaxis -SCDs for now - Lovenox with ok with Gen Surg SVC Full Code as per discussion with pt's and pt's daughter Follows with Dr Norman for routine care Disposition will need SNF case management on board Subjective ff up for infected sacral ulcers seen resting in bed, at the bedside mental status mostly at baseline as per him patient awake, not in distress, somewhat weak denies pain, shortness of breath no other symptoms Review of Systems Review of Systems: All systems reviewed & are unremarkable except as noted in HPI & below Physical Exam Physical Exam: General- oriented x 1, not in distress, speaks in short sentences with no effort or accessory muscle use Head- atraumatic Eyes- PERRL, EOMI, anicteric ENT- oropharynx clear Neck- supple, no JVD, no adenopathy, no thyromegaly; carotids +2/2, no bruits appreciated Lungs- clear to auscultation bilaterally, no rales/wheezes Heart- normal rate, regular rhythm; no murmur, no gallop, no rub appreciated Abdomen- normal bowel sounds, nondistended, soft, nontender, no masses or hepatosplenomegaly Extremities- no pretibial edema, no calf tenderness; peripheral pulses intact hands/forearms with chronic contractures Neuro- alert, oriented x 1; CN 2-12 grossly intact; no gross focal neurologic deficits Skin- warm & dry Results & Data Vital Signs (Past 12 Hours) Vital Signs Temp Pulse Pulse Resp BP BP Pulse Ox 07/26/19 07:43 36.5 C 86 18 97/63 L 95 07/26/19 04:11 37.1 C 89 14 131/78 95 07/26/19 00:07 72 07/25/19 23:37 37.5 C 71 17 111/68 95 Laboratory Results Laboratory Results - last 24 hr 07/26/19 07/26/19 07:15 07:16 Potassium 3.5 Creatinine 0.63 Est Cr Clr Drug Dosing 70.3 Est GFR ( Amer) 109.1 Est GFR (Non-Af Amer) 94.1
[2019-07-26] MEDS ORDERED: ROCURONIUM BROMIDE 10 MG/ML 5 ML VIAL ONE (10:52)
[2019-07-26] MEDS ORDERED: LIDOCAINE HCL 2% 2 ML VIAL/AMP(20MG/ML) INFIL ONE (10:52)
[2019-07-26] MEDS ORDERED: PROPOFOL IV EMULSION 10 MG/ML 20 ML VIAL IV ONE (10:52)
[2019-07-26] MEDS ORDERED: HYDROmorphone INJ 2 MG/ML SYR/VIAL ONE (10:52)
[2019-07-26] MEDS ORDERED: GLYCOPYRROLATE 0.2 MG/ML VIAL ONE (10:52)
[2019-07-26] MEDS ORDERED: NEOSTIGMINE METHYLSULFATE 5 MG/5 ML SYR ONE (10:52)
[2019-07-26] MEDS ORDERED: ONDANSETRON INJ 2 MG/ML 2 ML VIAL ONE (10:52)
[2019-07-26] MEDS ORDERED: fentaNYL citrate 100 MCG/2 ML VIAL ONE ×2 (10:52→14:31)
[2019-07-26] MEDS ORDERED: DEXAMETHASONE SOD INJ 4 MG/ML VIAL ONE (10:52)
--- NOTE | 2019-07-26 10:53 | Infectious Disease Progress Nt ---
Date of Service July 26, 2019 Assessment & Plan (1) Sacral wound: 64-year-old female with a large poorly healing sacral decubitus ulcer, now awaiting surgical debridement. Previous cultures positive for Enterobacter and methicillin sensitive staph aureus. Pending further culture results and operative findings, current antibiotics appropriate. Will adjust once culture results are available. Length of IV antibiotics yet to be determined. Will follow. Subjective Patient seen in follow-up for nonhealing sacral decubitus ulcer. Offers no new specific complaints. Remains afebrile, pain controlled. For OR later today. Blood cultures remain no growth, sacral cultures with pinpoint growth, identification and sensitivities pending. Review of Systems Review of Systems: All systems reviewed & are unremarkable except as noted in HPI & below Physical Exam Constitutional: WD/WN, vitals as above no acute distress Eyes: PERRL, conjunctivae normal, anicteric sclerae ENMT: external ear and nose normal, oropharynx normal Neck: trachea midline, no thyromegaly neck nontender Respiratory: normal respiratory effort, lungs clear to auscultation no respiratory distress Cardiovascular: RRR, no murmur, no edema Heart Sounds: no gallop and no cardiac rub Gastrointestinal (Abdomen): normal bowel sounds, soft, nontender, no hepatosplenomegaly Musculoskeletal: Head/Neck/Chest: normocephalic, head atraumatic and neck supple Skin: no rashes, warm and dry + wound (Large sacral decubitus ulcer with some purulent debris) Neurologic: moves all extremities and awake; no meningeal signs Psychiatric: A+Ox3, euthymic affect Lymphatic: no cervical or axillary lymphadenopathy no inguinal lymphadenopathy Results & Data Vital Signs (Past 12 Hours) Vital Signs Temp Pulse Pulse Resp BP BP Pulse Ox 07/26/19 07:43 36.5 C 86 18 97/63 L 95 07/26/19 04:11 37.1 C 89 14 131/78 95 07/26/19 00:07 72 07/25/19 23:37 37.5 C 71 17 111/68 95 Laboratory Results [facility] 07/26/19 07/26/19 07:15 07:16 Potassium 3.5 Creatinine 0.63 Diagnostic Findings Microbiology 07/24/19 16:03 Blood Aerobic Blood Culture - Preliminary No growth in Aerobic bottle after 24 hours. 07/24/19 16:03 Blood Anaerobic Blood Culture - Preliminary No growth in Anaerobic bottle after 24 hours. 07/24/19 15:57 Blood Aerobic Blood Culture - Preliminary No growth in Aerobic bottle after 24 hours. 07/24/19 15:57 Blood Anaerobic Blood Culture - Preliminary No growth in Anaerobic bottle after 24 hours. 07/24/19 16:15 Sacrum Gram Stain - Final 07/24/19 16:15 Sacrum Wound Culture - Preliminary Pin-point growth present, reincubating. PG Care Time/CCT Total # of Minutes Spent Total Time Spent with Patient: Total time spent is greater than 50% in coordination of care (as documented) at patient's floor/unit and/or counseling patient:
[2019-07-26] MEDS ORDERED: ATROPINE SULFATE 0.1 MG/ML 10ML SYR IV PRN (13:45)
[2019-07-26] MEDS ORDERED: ePHEDrine sulfate 50 MG/ML AMP IV PRN (13:45)
[2019-07-26] MEDS ORDERED: ONDANSETRON INJ 2 MG/ML 2 ML VIAL IV PRN ×2 (13:45→16:23)
[2019-07-26] MEDS ORDERED: HYDROmorphone INJ 1 MG/ML SYRINGE IV PRN (13:45)
[2019-07-26] MEDS ORDERED: fentaNYL citrate 100 MCG/2 ML VIAL IV PRN (13:45)
[2019-07-26] MEDS ORDERED: BUPIVACAINE 0.5 % 5 MG/1 ML MPF 30ML VIAL ONE (14:19)
[2019-07-26] MEDS ORDERED: GELATIN SPONGE SZ 100 ONE (14:44)
[2019-07-26] MEDS ORDERED: SUGAMMADEX SODIUM 200 MG/2 ML VIAL IV ONE (14:48)
[2019-07-26] MEDS ORDERED: PHENYLEPHRINE 100MCG/ML 5ML SYR ONE (14:50)
[2019-07-26] MEDS ORDERED: ePHEDrine sulfate 50 MG/ML SYR ONE (14:50)
--- NOTE | 2019-07-26 14:53 | Post Operative Brief Note ---
PG Immediate Post Op with CF Date of Surgery July 26, 2019 Pre & Post Diagnosis Operation Date: 07/26/19 12:00 Pre-Op Diagnosis: SACRAL WOUND Post-Op Diagnosis: SACRAL WOUND I identified the patient and participated in the time-out.: Yes Procedure Operation Date: 07/26/19 12:00 Actual Procedures p Debridement Decubitus Ulcer(Not Applicable) - Antwon Brasher MD, FACS for wound vac placement skin,subcu, fascia ,bone Surgeon Antwon Brasher MD, FACS Mental Health Professional Neeru Ding Estimated Blood Loss 20 Findings Consistent with Post-Op Diagnosis Specimens Specimen Description: Culture: A. Sacral ulcer B. Sacral Bone Drains Tobar Catheter (patient presented to OR with tobar cath in place draining clear concentrated yellow urine )
--- NOTE | 2019-07-26 15:30 | Operative Report ---
DATE OF OPERATION: 07/26/2019 NAME OF OPERATION: Excision and debridement of sacral decubitus ulcer for wound VAC placement of the skin, subcutaneous tissue, fascia and bone. PREOPERATIVE DIAGNOSIS: Sacral decubitus ulcer. POSTOPERATIVE DIAGNOSIS: Sacral decubitus ulcer. STAFF SURGEON: Antwon Brasher MD. MAINTENANCE PERSON: Mendoza Ding PA-C. ANESTHESIA: General. DESCRIPTION OF PROCEDURE: The patient was brought in the operating room. After appropriate anesthetic, she was placed on the operating room table in the left lateral decubitus position. She had a relatively large area of skin necrosis over approximately 8-10 cm in the area of the sacrum with undermining of the skin. At this point, 0.5% plain Marcaine was used to anesthetize the tissue outside the area of demarcation and then using the Bovie electrocautery, the skin, subcutaneous tissue, fascia and bone were removed. I did rongeur a small amount of necrotic bone and then sent some normal-appearing bone for culture. The other tissue was sent for pathology and culture. At this point, we did use some FloSeal and some small piece of Surgicel over the bone. Bleeding was controlled relatively well. The entire area was approximately 10 x 8 cm. Betadine packing was applied, dry gauze, ABD and tape. Care for the wound was then to be taken over by the wound clinic in the next 24 hours with most likely wound VAC placement. My operating room assistant helped with prepping, draping, excision of the tissue and packing of the wound. I attest to the content of the Intraoperative Record and any orders documented therein. Any exception s are noted below.
--- NOTE | 2019-07-26 15:53 | Anesthesiology Progress Note ---
Date of Service July 26, 2019 Anesthesia Post Procedure Vital Signs Vital Signs: Temp Pulse Pulse Pulse Resp BP BP 07/26/19 15:40 102 H 16 137/88 07/26/19 15:30 96 H 20 126/89 07/26/19 15:21 94 H 16 124/82 07/26/19 15:13 36.3 C L 83 17 124/75 07/26/19 13:43 36.5 C 85 20 136/74 07/26/19 07:43 36.5 C 86 18 97/63 L 07/26/19 04:11 37.1 C 89 14 131/78 07/26/19 00:07 72 07/25/19 23:37 37.5 C 71 17 111/68 07/25/19 20:17 88 113/69 07/25/19 19:50 37.8 C H 86 18 99/61 L 07/25/19 16:05 37.1 C 136/81 Pulse Ox 07/26/19 15:40 98 07/26/19 15:30 98 07/26/19 15:21 99 07/26/19 15:13 99 07/26/19 13:43 91 07/26/19 07:43 95 07/26/19 04:11 95 07/26/19 00:07 07/25/19 23:37 95 07/25/19 20:17 07/25/19 19:50 96 07/25/19 16:05 Pain Intensity Neck: Pain Intensity: 3 Transfer of Care Handoff Completed per policy Notes Mental Status: see notes below (Opens eyes to voice or touch) Patient Amnestic to Procedure: Yes Nausea / Vomiting: adequately controlled Pain: adequately controlled Airway Patency, RR, SpO2: stable & adequate BP & HR: stable & adequate Hydration State: stable & adequate Anesthetic Complications: no major complications apparent
[2019-07-26] MEDS: DAPTOmycin 200 MG in SYRINGE 0 ML IV SCH (15:56)
[2019-07-26] MEDS ORDERED: MoRPHine SULFATE 2 MG/ML CARP IV PRN ×2 (16:23)
[2019-07-26] MEDS: MONTELUKAST SODIUM 10 MG TABLET PO SCH (19:48)
[2019-07-26 22:26] LABS: Appearance Urine Clear (Clear); Bacteria Urine Automated Negative (Negative); Bilirubin Urine Negative (Negative); Blood Urine 2+ (Negative); Color Urine Yellow; Epithelial Cell Urine Auto >30 /lpf (0-5); Glucose Urine UA Negative (Negative); Ketones Urine Negative (Negative); Leukocyte Esterase Urine Negative (Negative); Nitrite Urine Negative (Negative); Protein Urine Negative (Negative); Specific Gravity Urine 1.016 (1.000-1.030); Urobilinogen Urine Negative (Negative); pH Urine 5.5 (4.5-7.5)
[2019-07-26 22:41] LABS: Renal Epithelial Cells Urine 0-5 /lpf (0-5)
[2019-07-27] MEDS: PIPERACILLIN/TAZOBACTAM 3.375 GM in DEXTROSE 5% 100 ML IV SCH ×3 (05:48→21:57)
[2019-07-27 08:07] LABS: Creatinine Clr Calc Pharmacy 77.7 ml/min; Est GFR (African American) 112.7; Est GFR (Non-African American) 97.3
--- NOTE | 2019-07-27 08:24 | Anesthesiology Progress Note ---
Date of Service July 27, 2019 Anesthesia Post Procedure Vital Signs Vital Signs: Temp Pulse Pulse Resp BP BP Pulse Ox 07/27/19 07:21 98 07/27/19 07:13 36.4 C L 90 18 129/78 93 07/27/19 03:51 98 07/27/19 03:47 36.7 C 63 17 104/71 80 L 07/26/19 23:28 36.4 C L 121/72 07/26/19 23:14 36.2 C L 72 17 81/45 L 94 07/26/19 19:50 36.9 C 104 H 14 125/80 93 07/26/19 18:51 36.6 C 90 16 116/71 94 07/26/19 17:52 36.4 C L 94 H 14 129/77 93 07/26/19 17:20 36.6 C 62 12 103/72 94 07/26/19 16:50 36.6 C 97 H 16 107/67 95 07/26/19 16:20 36.7 C 107 H 16 124/80 97 07/26/19 16:15 36.8 C 105 H 17 136/77 93 07/26/19 16:05 95 H 15 112/69 97 07/26/19 16:00 95 H 16 140/90 97 07/26/19 15:50 37.0 C 94 H 16 125/75 98 07/26/19 15:40 102 H 16 137/88 98 07/26/19 15:30 96 H 20 126/89 98 07/26/19 15:21 94 H 16 124/82 99 07/26/19 15:13 36.3 C L 83 17 124/75 99 07/26/19 13:43 36.5 C 85 20 136/74 91 Pain Intensity Neck: Pain Intensity: 3 Notes Mental Status: alert / awake / arousable Patient Amnestic to Procedure: Yes Nausea / Vomiting: adequately controlled Pain: adequately controlled Airway Patency, RR, SpO2: stable & adequate BP & HR: stable & adequate Hydration State: stable & adequate Anesthetic Complications: no major complications apparent and Pt Satisfied with anesthetic care
[2019-07-27] MEDS: RIVASTIGMINE 4.6 MG/24 HR TD SCH (09:05)
[2019-07-27] MEDS: REMOVE RIVASTIGMINE PATCH SCH (09:06)
[2019-07-27] MEDS: PIMAVANSERIN TARTRATE 34 MG PO SCH (09:06)
[2019-07-27] MEDS: SERTRALINE HCL 50 MG TABLET PO SCH (09:08)
[2019-07-27] MEDS: ALBUTEROL HFA 8 GM INHALER INH SCH ×4 (09:11→21:56)
[2019-07-27] MEDS: ACETAMINOPHEN 325 MG TAB PO PRN ×2 (14:07→19:31)
--- NOTE | 2019-07-27 14:29 | Infectious Disease Progress Nt ---
Date of Service July 27, 2019 Assessment & Plan (1) Sacral wound: 64-year-old female with a large poorly healing sacral decubitus ulcer, now status post surgical debridement. Pending final operative cultures, current antibiotics appropriate. Will likely require 6 weeks of IV antibiotics. As I will be leaving hospital after today, Dr. Browne will provide any further infectious disease follow-up. Subjective Patient seen in follow-up for nonhealing sacral decubitus ulcer. Now status post surgical debridement. Appears relatively comfortable, afebrile and hemodynamically stable. Cultures growing gram-negative bacilli thus far. Review of Systems Review of Systems: All systems reviewed & are unremarkable except as noted in HPI & below Physical Exam Constitutional: WD/WN, vitals as above no acute distress Eyes: PERRL, conjunctivae normal, anicteric sclerae ENMT: external ear and nose normal, oropharynx normal Neck: trachea midline, no thyromegaly neck nontender Respiratory: normal respiratory effort, lungs clear to auscultation no respiratory distress Cardiovascular: RRR, no murmur, no edema Heart Sounds: no gallop and no cardiac rub Gastrointestinal (Abdomen): normal bowel sounds, soft, nontender, no hepatosplenomegaly Musculoskeletal: Head/Neck/Chest: normocephalic, head atraumatic and neck supple Skin: no rashes, warm and dry + wound (Large open sacral wound) Neurologic: moves all extremities and awake; no meningeal signs Psychiatric: A+Ox3, euthymic affect Lymphatic: no cervical or axillary lymphadenopathy no inguinal lymphadenopathy Results & Data Vital Signs (Past 12 Hours) Vital Signs Temp Pulse Resp BP Pulse Ox 07/27/19 11:19 36.7 C 87 18 116/71 95 07/27/19 07:21 98 07/27/19 07:13 36.4 C L 90 18 129/78 93 07/27/19 03:51 98 07/27/19 03:47 36.7 C 63 17 104/71 80 L Laboratory Results [facility] 07/27/19 06:47 Creatinine 0.57 L Urine 07/26/19 Range/Units 21:41 Urine Color Yellow Urine Appearance Clear (Clear) Urine pH 5.5 (4.5-7.5) Ur Specific [place] 1.016 (1.000-1.030) Urine Protein Negative (Negative) Urine Glucose (UA) Negative (Negative) Diagnostic Findings Microbiology 07/26/19 14:40 Sacrum Decubitus Gram Stain - Final 07/26/19 14:40 Sacrum Decubitus Aerobic and Anaerobic Culture - Preliminary Gram negative bacilli 07/24/19 16:03 Blood Aerobic Blood Culture - Preliminary No growth in Aerobic bottle after 48 hours. 07/24/19 16:03 Blood Anaerobic Blood Culture - Preliminary No growth in Anaerobic bottle after 48 hours. 07/24/19 15:57 Blood Aerobic Blood Culture - Preliminary No growth in Aerobic bottle after 48 hours. 07/24/19 15:57 Blood Anaerobic Blood Culture - Preliminary No growth in Anaerobic bottle after 48 hours. 07/24/19 16:15 Sacrum Gram Stain - Final 07/24/19 16:15 Sacrum Wound Culture - Final Alpha strep. not enterococcus PG Care Time/CCT Total # of Minutes Spent Total Time Spent with Patient: Total time spent is greater than 50% in coordination of care (as documented) at patient's floor/unit and/or counseling patient:
[2019-07-27] MEDS: DAPTOmycin 200 MG in SYRINGE 0 ML IV SCH (17:17)
--- NOTE | 2019-07-27 18:37 | Hospitalist Progress Note ---
Date of Service July 27, 2019 Assessment & Plan (1) Sacral wound: per Dr. Flores notes: Pt is 64 y/o F with PMH dementia, HTN, sacral wound presented to hospital as direct admission from wound clinic for worsening sacral wound. 07/12/2018 buttock wound culture positive Enterobacter, MSSA. L spine Xray: No acute fracture or subluxation of the lumbar spine. Age- indeterminate 20% anterior endplate compression deformity of T12. Pelvis Xray: No acute fracture, dislocation or bony erosion to suggest acute osteomyelitis. Demineralized appearance of the bones with partially obscured sacrum and coccyx limits the study. CT of pelvis shows -sacral decubitus ulcer /no evidence of osteomyelitis /no fluid collection suggestive of abscess Wound cultures: reincubating Blood cultures: negative General Surgery consulted, status post debridement 07/26/2019 Sacral decubitus ulcer culture: Gram-negative bacilli ID consulted, continue Daptomycin and Zosyn IV Wound care consulted ASPIRATION RISK due to advanced Dementia Pt noted to have glenn aspiration during meal -coughing with food S/P Speech Eval: soft cut diet (2) Lewy body dementia: - mental status at baseline - Continue rivastigmine, pimavanserin (3) HTN, goal to be determined: - BP borderline, hold Valsartan - Monitor BP (4) Panic disorder: - Follows with Dr Domínguez - Continue sertraline (5) Reactive airway disease: -respiratory status stable -Continue Singulair, albuterol (6) Severe protein-calorie malnutrition: Nutrition consult DVT Prophylaxis -SCDs for now - Lovenox with ok with Gen Surg SVC Full Code as per discussion with pt's and pt's daughter Follows with Dr Norman for routine care Disposition will need SNF case management on board Subjective Follow-up for sacral decubitus ulcer infection Seen resting in bed, comfortable More awake, pleasantly confused Has some pain in the back Denies chest pain, shortness of breath, palpitation No other symptoms Review of Systems Review of Systems: All systems reviewed & are unremarkable except as noted in HPI & below Physical Exam Physical Exam: General-pleasantly confused, not in distress, speaks in sentences with no effort or accessory muscle use Eyes- anicteric Neck- no JVD Lungs- clear breath sounds bilaterally, no rales/wheezes Heart- normal rate, regular rhythm; no murmurs Abdomen- normal bowel sounds, nondistended, soft, nontender Extremities- no pretibial edema, no calf tenderness Neuro- alert, baseline confusion; no gross focal neurologic deficits Skin- warm & dry Results & Data Vital Signs (Past 12 Hours) Vital Signs Temp Pulse Resp BP Pulse Ox 07/27/19 15:37 36.4 C L 92 H 18 139/87 93 07/27/19 11:19 36.7 C 87 18 116/71 95 07/27/19 07:21 98 07/27/19 07:13 36.4 C L 90 18 129/78 93 Laboratory Results Laboratory Results - last 24 hr 07/26/19 07/27/19 21:41 06:47 Creatinine 0.57 L Est Cr Clr Drug Dosing 77.7 Est GFR ( Amer) 112.7 Est GFR (Non-Af Amer) 97.3 Urine Color Yellow Urine Appearance Clear Urine pH 5.5 Ur Specific [place] 1.016 Urine Protein Negative Urine Glucose (UA) Negative Urine Ketones Negative Urine Blood 2+ H Urine Nitrite Negative Urine Bilirubin Negative Urine Urobilinogen Negative Ur Leukocyte Esterase Negative Urine WBC (Auto) 1-5 Urine RBC (Auto) 10-30 H U Hyaline Cast (Auto) 5-10 H U Epithel Cells (Auto) >30 H Urine Bacteria (Auto) Negative Ur Renal Epithelial Cell 0-5
[2019-07-27] MEDS: MONTELUKAST SODIUM 10 MG TABLET PO SCH (21:56)
[2019-07-28] MEDS: PIPERACILLIN/TAZOBACTAM 3.375 GM in DEXTROSE 5% 100 ML IV SCH ×3 (05:30→21:27)
[2019-07-28] MEDS: REMOVE RIVASTIGMINE PATCH SCH (09:08)
[2019-07-28] MEDS: ALBUTEROL HFA 8 GM INHALER INH SCH ×4 (09:08→20:10)
[2019-07-28] MEDS: RIVASTIGMINE 4.6 MG/24 HR TD SCH (09:08)
[2019-07-28] MEDS: SERTRALINE HCL 50 MG TABLET PO SCH (09:08)
[2019-07-28] MEDS: PIMAVANSERIN TARTRATE 34 MG PO SCH (09:09)
--- NOTE | 2019-07-28 10:01 | Surgery Progress Note ---
Date of Service July 28, 2019 Assessment & Plan (1) S/P debridement: No new recommendations. Continue wound vac. Present on Admission?: Yes Subjective Has intermittent pain at sacral wound debridement site which is well controlled on meds. Wound vac in place. No concerns. Physical Exam Skin: wound vac in place, minimal drainage Results & Data Vital Signs (Past 12 Hours) Vital Signs Temp Pulse Resp BP BP Pulse Ox Pulse Ox 07/28/19 07:10 36.5 C 91 H 16 114/72 95 07/27/19 23:30 95 07/27/19 23:00 36.9 C 87 16 100/62 95
[2019-07-28] MEDS: DAPTOmycin 200 MG in SYRINGE 0 ML IV SCH (15:28)
[2019-07-28 16:25] LABS: BUN Creatinine Ratio 15.7 (10-20); Calcium 8.7 mg/dl (8.5-10.1); Creatinine Clr Calc Pharmacy 82.1 ml/min; Est GFR (African American) 111.5; Est GFR (Non-African American) 96.2; Potassium 3.7 mmol/L (3.5-5.1)
--- NOTE | 2019-07-28 17:22 | Hospitalist Progress Note ---
Date of Service July 28, 2019 Assessment & Plan (1) Sacral wound: per Dr. Flores notes: Pt is 64 y/o F with PMH dementia, HTN, sacral wound presented to hospital as direct admission from wound clinic for worsening sacral wound. 07/12/2018 buttock wound culture positive Enterobacter, MSSA. L spine Xray: No acute fracture or subluxation of the lumbar spine. Age- indeterminate 20% anterior endplate compression deformity of T12. Pelvis Xray: No acute fracture, dislocation or bony erosion to suggest acute osteomyelitis. Demineralized appearance of the bones with partially obscured sacrum and coccyx limits the study. CT of pelvis shows -sacral decubitus ulcer /no evidence of osteomyelitis /no fluid collection suggestive of abscess Wound cultures 07/24: Alpha strep, not enterococcus Wound Culture 07/26: Gram negative bacilli Blood cultures: negative General Surgery consulted, status post debridement 07/26/2019 ID consulted, continue Daptomycin and Zosyn IV Wound care consulted - Wound Vac in place ASPIRATION RISK due to advanced Dementia Pt noted to have glenn aspiration during meal -coughing with food S/P Speech Eval: soft cut diet (2) Lewy body dementia: - mental status at baseline - Continue rivastigmine, pimavanserin (3) HTN, goal to be determined: - BP borderline, hold Valsartan - Monitor BP (4) Panic disorder: - Follows with Dr Domínguez - Continue sertraline (5) Reactive airway disease: -respiratory status stable -Continue Singulair, albuterol (6) Severe protein-calorie malnutrition: Nutrition consult DVT Prophylaxis - SCDs - Lovenox - discussed with Dr. Gallardo Full Code as per discussion with pt's and pt's daughter Follows with Dr Norman for routine care Disposition will need SNF case management on board Subjective ff up for sacral ulcer infection seen resting, not in distress, alert, tries to answer questions denies pain, dyspnea appetite good per RN, eats more during dinner no other issues noted Review of Systems Review of Systems: All systems reviewed & are unremarkable except as noted in HPI & below Physical Exam Physical Exam: General- baseline confusion, not in distress, speaks in sentences with no effort or accessory muscle use Eyes- anicteric Neck- no JVD Lungs- clear breath sounds bilaterally, no rales/wheezes Heart- normal rate, regular rhythm; no murmurs Abdomen- normal bowel sounds, nondistended, soft, nontender Back- wound vac in place, no discharge noted Extremities- no pretibial edema, no calf tenderness Neuro- alert, oriented x 3; no gross focal neurologic deficits Skin- warm & dry Results & Data Vital Signs (Past 12 Hours) Vital Signs Temp Pulse Resp BP BP Pulse Ox 07/28/19 15:18 36.4 C L 85 17 123/77 96 07/28/19 07:10 36.5 C 91 H 16 114/72 95
[2019-07-28] MEDS ORDERED: POLYETHYLENE (MIRALAX) 17 GM PACK PO PRN (19:32)
[2019-07-28] MEDS ORDERED: POLYETHYLENE (MIRALAX) 17 GM PACK PO STA (19:33)
[2019-07-28] MEDS: ENOXAPARIN INJ 40 MG/0.4 ML SYR SQ SCH (20:04)
[2019-07-28] MEDS: MONTELUKAST SODIUM 10 MG TABLET PO SCH (21:22)
[2019-07-28] MEDS: DOCUSATE SODIUM/SENNA 50/8.6MG TAB PO SCH (21:22)
[2019-07-29] MEDS: PIPERACILLIN/TAZOBACTAM 3.375 GM in DEXTROSE 5% 100 ML IV SCH ×3 (05:32→21:28)
[2019-07-29] MEDS: REMOVE RIVASTIGMINE PATCH SCH (09:15)
[2019-07-29] MEDS: RIVASTIGMINE 4.6 MG/24 HR TD SCH (09:23)
[2019-07-29] MEDS: PIMAVANSERIN TARTRATE 34 MG PO SCH (09:27)
[2019-07-29] MEDS: DOCUSATE SODIUM/SENNA 50/8.6MG TAB PO SCH (09:29)
[2019-07-29] MEDS: SERTRALINE HCL 50 MG TABLET PO SCH (09:29)
[2019-07-29] MEDS: ALBUTEROL HFA 8 GM INHALER INH SCH ×4 (09:29→21:14)
--- NOTE | 2019-07-29 10:37 | Surgery Progress Note ---
Date of Service July 29, 2019 Assessment & Plan (1) S/P debridement: No new recommendations. Continue wound vac. Subjective No complaints. Less interactive this morning. Did not answer questions. Review of Systems Review of Systems: Unobtainable due to mental health condition Physical Exam Skin: wound vac in place, serosanguinous drainage Results & Data Vital Signs (Past 12 Hours) Vital Signs Temp Pulse Resp BP BP Pulse Ox 07/29/19 07:57 36.9 C 79 18 111/69 94 07/28/19 23:26 37.2 C 78 16 107/69 95
[2019-07-29] MEDS: DAPTOmycin 200 MG in SYRINGE 0 ML IV SCH (15:47)
[2019-07-29] MEDS ORDERED: bisacodyL 10 MG SUPP PR PRN (16:34)
--- NOTE | 2019-07-29 16:36 | Hospitalist Progress Note ---
Date of Service July 29, 2019 Assessment & Plan (1) Sacral wound: per Dr. Flores notes: Pt is 64 y/o F with PMH dementia, HTN, sacral wound presented to hospital as direct admission from wound clinic for worsening sacral wound. 07/12/2018 buttock wound culture positive Enterobacter, MSSA. L spine Xray: No acute fracture or subluxation of the lumbar spine. Age- indeterminate 20% anterior endplate compression deformity of T12. Pelvis Xray: No acute fracture, dislocation or bony erosion to suggest acute osteomyelitis. Demineralized appearance of the bones with partially obscured sacrum and coccyx limits the study. CT of pelvis shows -sacral decubitus ulcer /no evidence of osteomyelitis /no fluid collection suggestive of abscess Wound cultures 07/24: Alpha strep, not enterococcus Wound Culture 07/26: Enterococcus and Bacteroides Blood cultures: negative General Surgery consulted, status post debridement 07/26/2019 ID consulted, continue Daptomycin and Zosyn IV Wound care consulted - Wound Vac in place ASPIRATION RISK due to advanced Dementia Pt noted to have glenn aspiration during meal -coughing with food S/P Speech Eval: soft cut diet (2) Lewy body dementia: - mental status at baseline - Continue rivastigmine, pimavanserin (3) HTN, goal to be determined: - BP borderline, hold Valsartan - Monitor BP (4) Panic disorder: - Follows with Dr Domínguez - Continue sertraline (5) Reactive airway disease: -respiratory status stable -Continue Singulair, albuterol (6) Severe protein-calorie malnutrition: Nutrition consult DVT Prophylaxis - SCDs - Lovenox - discussed with Dr. Gallardo Full Code as per discussion with pt's and pt's daughter Follows with Dr Norman for routine care Disposition will need SNF case management on board Subjective ff up for sacral decubitus ulcer infection seen resting in bed, awake but not as conversant patient's Khanh at the bedside, states she is somewhat more confused no pain, shortness of breath (+) constipation as per RN appetite good as per patient's no other symptoms Review of Systems Review of Systems: All systems reviewed & are unremarkable except as noted in HPI & below Physical Exam Physical Exam: General- oriented x 0, not in distress, speaks in sentences with no effort or accessory muscle use Eyes- anicteric Neck- no JVD Lungs- clear breath sounds bilaterally Heart- normal rate, regular rhythm; no murmurs Abdomen- normal bowel sounds, nondistended, soft, nontender Back- wound vac in place: no discharge, bleeding noted Extremities- no pretibial edema, no calf tenderness Neuro- alert, oriented x 0; no new gross focal neurologic deficits Skin- warm & dry Results & Data Vital Signs (Past 12 Hours) Vital Signs Temp Pulse Resp BP BP Pulse Ox 07/29/19 15:44 36.8 C 77 17 151/73 H 95 07/29/19 07:57 36.9 C 79 18 111/69 94
[2019-07-29] MEDS ORDERED: MAGNESIUM HYDROXIDE SUSP 30 ML UDC PO PRN (16:39)
[2019-07-29] MEDS ORDERED: DOCUSATE SODIUM/SENNA 50/8.6MG TAB PO SCH (16:45)
[2019-07-29] MEDS: ENOXAPARIN INJ 40 MG/0.4 ML SYR SQ SCH (18:29)
[2019-07-29] MEDS: MONTELUKAST SODIUM 10 MG TABLET PO SCH (21:17)
[2019-07-30] MEDS: PIPERACILLIN/TAZOBACTAM 3.375 GM in DEXTROSE 5% 100 ML IV SCH ×2 (05:51→13:30)
[2019-07-30] MEDS: ACETAMINOPHEN 325 MG TAB PO PRN ×2 (05:53→20:14)
[2019-07-30 06:25] LABS: Creatinine Clr Calc Pharmacy 88.1 ml/min; Est GFR (African American) 114.1; Est GFR (Non-African American) 98.4
[2019-07-30] MEDS: ALBUTEROL HFA 8 GM INHALER INH SCH ×4 (09:28→21:59)
[2019-07-30] MEDS: REMOVE RIVASTIGMINE PATCH SCH ×2 (09:28→18:41)
[2019-07-30] MEDS: PIMAVANSERIN TARTRATE 34 MG PO SCH (09:29)
[2019-07-30] MEDS: SERTRALINE HCL 50 MG TABLET PO SCH (09:30)
[2019-07-30] MEDS: DOCUSATE SODIUM/SENNA 50/8.6MG TAB PO SCH (10:12)
--- NOTE | 2019-07-30 11:15 | Infectious Disease Progress Nt ---
Date of Service July 30, 2019 Assessment & Plan (1) Sacral wound: 64-year-old female with a large poorly healing sacral decubitus ulcer, now status post surgical debridement. can change to Rocephin 2g IV daily Will likely require 6 weeks of IV antibiotics. will need weekly cbc, cmp, esr while on therapy. Subjective pt remains on IV abx for sacral wound, 07/26 OR culture growing srivastava sensitive Enterobacter and bacteroides. previous culture from 07/12 growing MSSA. afebrile. creat 0.5, no cbc. Results & Data Vital Signs (Past 12 Hours) Vital Signs Temp Pulse Resp BP Pulse Ox Pulse Ox 07/30/19 07:43 36.6 C 72 18 123/73 93 07/30/19 00:20 96 Laboratory Results Microbiology 07/26/19 14:40 Sacrum Decubitus Gram Stain - Final 07/26/19 14:40 Sacrum Decubitus Aerobic and Anaerobic Culture - Preliminary Enterobacter cloacae Bacteroides fragilis Anaerobic gram positive cocci 07/24/19 16:03 Blood Aerobic Blood Culture - Final No growth in Aerobic bottle after 5 days. 07/24/19 16:03 Blood Anaerobic Blood Culture - Final No growth in Anaerobic bottle after 5 days. 07/24/19 15:57 Blood Aerobic Blood Culture - Final No growth in Aerobic bottle after 5 days. 07/24/19 15:57 Blood Anaerobic Blood Culture - Final No growth in Anaerobic bottle after 5 days. 07/24/19 16:15 Sacrum Gram Stain - Final 07/24/19 16:15 Sacrum Wound Culture - Final Alpha strep. 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
[2019-07-30] MEDS: cefTRIAXone SODIUM 2,000 MG in DEXTROSE 5% 50 ML IV SCH (16:05)
[2019-07-30 17:00] LABS: Creatine Kinase 130 U/L (26-192)
[2019-07-30] MEDS: RIVASTIGMINE 4.6 MG/24 HR TD SCH (18:41)
[2019-07-30] MEDS: ENOXAPARIN INJ 40 MG/0.4 ML SYR SQ SCH (19:45)
[2019-07-30] MEDS: MONTELUKAST SODIUM 10 MG TABLET PO SCH (21:59)
[2019-07-31 07:11] LABS: Est GFR (Non-African American) 100.9
--- NOTE | 2019-07-31 07:22 | Hospitalist Progress Note ---
Date of Service delayed entry date of service 07/30/19 July 31, 2019 Assessment & Plan (1) Sacral wound: per Dr. Flores notes: Pt is 64 y/o F with PMH dementia, HTN, sacral wound presented to hospital as direct admission from wound clinic for worsening sacral wound. 07/12/2018 buttock wound culture positive Enterobacter, MSSA. L spine Xray: No acute fracture or subluxation of the lumbar spine. Age- indeterminate 20% anterior endplate compression deformity of T12. Pelvis Xray: No acute fracture, dislocation or bony erosion to suggest acute osteomyelitis. Demineralized appearance of the bones with partially obscured sacrum and coccyx limits the study. CT of pelvis shows -sacral decubitus ulcer /no evidence of osteomyelitis /no fluid collection suggestive of abscess Wound cultures 07/24: Alpha strep, not enterococcus Wound Culture 07/26: Enterococcus and Bacteroides Blood cultures: negative General Surgery consulted, status post debridement 07/26/2019 ID consulted, continue Daptomycin and Zosyn IV Transitioned to ceftriaxone IV, recommended 6 weeks of IV antibiotics via PICC line PICC line ordered Wound care consulted - Wound Vac in place ASPIRATION RISK due to advanced Dementia Pt noted to have glenn aspiration during meal -coughing with food S/P Speech Eval: soft cut diet (2) Lewy body dementia: - mental status at baseline - Continue rivastigmine, pimavanserin (3) HTN, goal to be determined: - BP borderline, held Valsartan BP stable overall - Monitor BP off Valsartan (4) Panic disorder: - Follows with Dr Domínguez - Continue sertraline (5) Reactive airway disease: -respiratory status stable -Continue Singulair, albuterol (6) Severe protein-calorie malnutrition: Nutrition consult DVT Prophylaxis - SCDs - Lovenox - discussed with Dr. Gallardo Full Code as per discussion with pt's and pt's daughter Follows with Dr Norman for routine care Disposition will need SNF case management on board Subjective Follow-up for infected sacral decubitus ulcer Seen with patient's present at bedside Patient's mental status at baseline Not in distress, no signs of pain Appetite is good, positive BM today No other symptoms Review of Systems Review of Systems: All systems reviewed & are unremarkable except as noted in HPI & below Physical Exam Physical Exam: General-Baseline confused, not in distress, speaks in sentences with no effort or accessory muscle use Eyes- anicteric Neck- no JVD Lungs- clear breath sounds, no crackles, no wheezing bilaterally Heart- normal rate, regular rhythm; no murmurs Abdomen- normal bowel sounds, nondistended, soft, nontender Back-[address], no surrounding erythema/edema/warmth or tenderness Extremities- no pretibial edema, no calf tenderness Neuro- alert, baseline confusion; no other new gross focal neurologic deficits Skin- warm & dry Results & Data Vital Signs (Past 12 Hours) Vital Signs Temp Pulse Resp BP Pulse Ox 07/30/19 23:38 36.4 C L 78 14 144/71 H 94 Laboratory Results Laboratory Results - last 24 hr 07/30/19 07/31/19 16:18 06:18 Creatinine 0.51 L Est Cr Clr Drug Dosing 95.0 Est GFR ( Amer) 117.0 Est GFR (Non-Af Amer) 100.9 Total Creatine Kinase 130 Specimen Hemolysis
[2019-07-31] MEDS: SERTRALINE HCL 50 MG TABLET PO SCH (09:10)
[2019-07-31] MEDS: DOCUSATE SODIUM/SENNA 50/8.6MG TAB PO SCH (09:11)
[2019-07-31] MEDS: PIMAVANSERIN TARTRATE 34 MG PO SCH (09:11)
[2019-07-31] MEDS: ALBUTEROL HFA 8 GM INHALER INH SCH ×4 (09:12→21:25)
[2019-07-31] MEDS: RIVASTIGMINE 4.6 MG/24 HR TD SCH ×2 (15:23→21:59)
[2019-07-31] MEDS: REMOVE RIVASTIGMINE PATCH SCH (15:23)
[2019-07-31] MEDS: cefTRIAXone SODIUM 2,000 MG in DEXTROSE 5% 50 ML IV SCH (16:10)
--- NOTE | 2019-07-31 16:55 | Hospitalist Progress Note ---
Date of Service July 31, 2019 Assessment & Plan (1) Sacral wound: per Dr. Flores notes: Pt is 64 y/o F with PMH dementia, HTN, sacral wound presented to hospital as direct admission from wound clinic for worsening sacral wound. 07/12/2018 buttock wound culture positive Enterobacter, MSSA. L spine Xray: No acute fracture or subluxation of the lumbar spine. Age- indeterminate 20% anterior endplate compression deformity of T12. Pelvis Xray: No acute fracture, dislocation or bony erosion to suggest acute osteomyelitis. Demineralized appearance of the bones with partially obscured sacrum and coccyx limits the study. CT of pelvis shows -sacral decubitus ulcer /no evidence of osteomyelitis /no fluid collection suggestive of abscess Wound cultures 07/24: Alpha strep, not enterococcus Wound Culture 07/26: Enterococcus and Bacteroides, Finegoldia magna Blood cultures: negative General Surgery consulted, status post debridement 07/26/2019 ID consulted, continue Daptomycin and Zosyn IV Transitioned to ceftriaxone IV, recommended 6 weeks of IV antibiotics via PICC line will need weekly CBC, CMP, ESR while on IV antibiotics Continue wound care with wound vac (follow discharge instructions), follow-up with wound care center closely ASPIRATION RISK due to advanced Dementia Pt noted to have glenn aspiration during meal -coughing with food S/P Speech Eval: soft cut diet (2) Lewy body dementia: - mental status at baseline - Continue rivastigmine, pimavanserin (3) HTN, goal to be determined: - BP borderline, held Valsartan BP stable overall - Monitor BP off Valsartan (4) Panic disorder: - Follows with Dr Domínguez - Continue sertraline (5) Reactive airway disease: -respiratory status stable -Continue Singulair, albuterol (6) Severe protein-calorie malnutrition: Nutrition consult DVT Prophylaxis - SCDs - Lovenox - discussed with Dr. Gallardo Full Code as per discussion with pt's and pt's daughter Follows with Dr Norman for routine care Disposition anticipate d/c to [facility] tomorrow ff up with Wound Care Center in 1 week case management on board Subjective Follow-up for sacral decubitus ulcer infection Resting bed, comfortable, in good spirits, smiling No signs of pain, discomfort Appetite good as per RN, positive BM With dressing change today per wound care service No other symptoms Review of Systems Review of Systems: All systems reviewed & are unremarkable except as noted in HPI & below Physical Exam Physical Exam: General-alert, confused at baseline, not in distress, speaks in sentences with no effort or accessory muscle use Eyes- anicteric Neck- no JVD Lungs- clear breath sounds no crackles, no wheezing bilaterally Heart- normal rate, regular rhythm; no murmurs Abdomen- normal bowel sounds, nondistended, soft, nontender Extremities- no pretibial edema, no calf tenderness Back-wound VAC in place, no bleeding or discharge Neuro-no new gross focal neurologic deficit noted Skin- warm & dry Results & Data Vital Signs (Past 12 Hours) Vital Signs Temp Pulse Pulse Resp BP BP Pulse Ox 07/31/19 15:16 36.7 C 83 16 129/72 98 07/31/19 13:00 36.5 C 92 H 16 129/74 99 07/31/19 07:40 36.3 C L 81 16 101/68 95 Laboratory Results Laboratory Results - last 24 hr 07/30/19 07/31/19 16:18 06:18 Creatinine 0.51 L Est Cr Clr Drug Dosing 95.0 Est GFR ( Amer) 117.0 Est GFR (Non-Af Amer) 100.9 Total Creatine Kinase 130 Specimen Hemolysis
[2019-07-31] MEDS: ENOXAPARIN INJ 40 MG/0.4 ML SYR SQ SCH (18:28)
[2019-07-31] MEDS: MONTELUKAST SODIUM 10 MG TABLET PO SCH (21:25)
[2019-08-01 08:20] LABS: Creatinine Clr Calc Pharmacy 88.1 ml/min; Est GFR (African American) 114.1; Est GFR (Non-African American) 98.4
[2019-08-01] MEDS: SERTRALINE HCL 50 MG TABLET PO SCH (09:12)
[2019-08-01] MEDS: DOCUSATE SODIUM/SENNA 50/8.6MG TAB PO SCH (09:12)
[2019-08-01] MEDS: ALBUTEROL HFA 8 GM INHALER INH SCH ×4 (09:12→20:41)
[2019-08-01] MEDS: PIMAVANSERIN TARTRATE 34 MG PO SCH (09:13)
--- NOTE | 2019-08-01 16:15 | Hospitalist Progress Note ---
Date of Service August 01, 2019 Assessment & Plan (1) Sacral wound: Pt is 64 y/o F with PMH dementia, HTN, sacral wound presented to hospital as direct admission from wound clinic for worsening sacral wound. 07/12/2018 buttock wound culture positive Enterobacter, MSSA. L spine Xray: No acute fracture or subluxation of the lumbar spine. Age- indeterminate 20% anterior endplate compression deformity of T12. Pelvis Xray: No acute fracture, dislocation or bony erosion to suggest acute osteomyelitis. Demineralized appearance of the bones with partially obscured sacrum and coccyx limits the study. CT of pelvis shows -sacral decubitus ulcer /no evidence of osteomyelitis /no fluid collection suggestive of abscess Wound cultures 07/24: Alpha strep, not enterococcus Wound Culture 07/26: Enterococcus and Bacteroides, Finegoldia magna Blood cultures: negative General Surgery consulted, status post debridement 07/26/2019 ID consulted, was treated with Daptomycin and Zosyn IV Transitioned to ceftriaxone IV, recommended 6 weeks of IV antibiotics via PICC line will need weekly CBC, CMP, ESR while on IV antibiotics Continue wound care with wound vac (follow discharge instructions), follow-up with wound care center closely ASPIRATION RISK due to advanced Dementia Pt noted to have glenn aspiration during meal -coughing with food S/P Speech Eval: soft cut diet (2) Lewy body dementia: - mental status at baseline - Continue rivastigmine, pimavanserin (3) HTN, goal to be determined: - BP borderline, held Valsartan BP stable overall - Monitor BP off Valsartan (4) Panic disorder: - Follows with Dr Domínguez - Continue sertraline (5) Reactive airway disease: -respiratory status stable -Continue Singulair, albuterol (6) Severe protein-calorie malnutrition: Nutrition consult DVT Prophylaxis - SCDs - Lovenox - discussed with Dr. Gallardo Full Code as per discussion with pt's and pt's daughter Follows with Dr Norman for routine care Disposition anticipate d/c to [facility] tomorrow ff up with Wound Care Center in 1 week case management on board Subjective baseline dementia oriented to person no fever or chills offers no complain Physical Exam Constitutional: WD/WN, vitals as above + thin, + cachectic and + altered mental status; no acute distress Eyes: PERRL, conjunctivae normal, anicteric sclerae Neck: trachea midline, no thyromegaly neck nontender Respiratory: normal respiratory effort, lungs clear to auscultation normal respiratory effort; no respiratory distress Auscultation: lungs clear to auscultation bilaterally Cardiovascular: RRR, no murmur, no edema Rate/Rhythm: regular rate and regular rhythm Heart Sounds: no gallop and no cardiac rub Gastrointestinal (Abdomen): normal bowel sounds, soft, nontender, no hepatosplenomegaly Musculoskeletal: Head/Neck/Chest: normocephalic, head atraumatic and neck supple Extremities: + limited ROM of extremities; + extremities abnormal to i nspection Skin: no rashes, warm and dry + ulcer (sacral decub, with inferior tunneling, surrounding erythema) and + wound (Large sacral decubitus ulcer with some purulent debris) Neurologic: moves all extremities and awake Motor/Sensory: + sensory deficit Psychiatric: A+Ox3, euthymic affect Orientation: alert; + not oriented x 3 Lymphatic: no cervical or axillary lymphadenopathy no inguinal lymphadenopathy Results & Data Vital Signs (Past 12 Hours) Vital Signs Temp Pulse Resp BP Pulse Ox 08/01/19 15:13 36.6 C 90 16 130/79 95 08/01/19 07:12 36.7 C 85 16 127/77 95
[2019-08-01] MEDS: cefTRIAXone SODIUM 2,000 MG in DEXTROSE 5% 50 ML IV SCH (16:18)
[2019-08-01] MEDS: ENOXAPARIN INJ 40 MG/0.4 ML SYR SQ SCH (18:56)
[2019-08-01] MEDS: MONTELUKAST SODIUM 10 MG TABLET PO SCH (20:41)
[2019-08-01] MEDS: RIVASTIGMINE 4.6 MG/24 HR TD SCH (20:56)
[2019-08-01] MEDS ORDERED: REMOVE RIVASTIGMINE PATCH SCH (20:59)
[2019-08-02] MEDS: SERTRALINE HCL 50 MG TABLET PO SCH (08:49)
[2019-08-02] MEDS: DOCUSATE SODIUM/SENNA 50/8.6MG TAB PO SCH (08:49)
[2019-08-02] MEDS: PIMAVANSERIN TARTRATE 34 MG PO SCH (08:50)
[2019-08-02] MEDS: ALBUTEROL HFA 8 GM INHALER INH SCH ×2 (08:50→13:35)
--- NOTE | 2019-08-02 12:05 | Discharge Summary ---
Date of Service August 02, 2019 Admission HPI Per Admitting Provider Pt is 64 y/o F with PMH dementia, HTN, sacral wound presented to hospital as direct admission from wound clinic for worsening sacral wound. History obtained from patient's and patient's records secondary to patient's history of dementia. Patient was seen in wound clinic today and noted to have worsening sacral wound and had area debrided, and was referred to hospital secondary to worsening and probable need for further debridement. Patient currently on cefdinir. 07/12/2018 buttock wound culture positive Enterobacter,MSSA. reports patient's temperature has been reported as normal at her personal fdc. Reports patient currently at her baseline mental status. States that patient able to eat and drink however has varying appetite and typically has poor appetite. Recently has started protein supplement daily. Denies any history of aspiration and reports pt on regular diet however patient needs food in bite size pieces and assistance with feeding. Reports pt bed bound and repor ts that have been attempting alternating position changes and offloading. States pt has been voicing back pain for a couple of months however unsure if pain in back or coming from sacral ulcer secondary to pt's dementia. Denies any known trauma/injury. Denies any recent reports of vomiting or diarrhea or noted SOB from personal care facility. Principal Diagnosis INFECTED SACRAL DECUBITUS ULCER WOUND Discharge Exam Constitutional WD/WN, vitals as above + thin, + cachectic and + altered mental status; no acute distress Eyes PERRL, conjunctivae normal, anicteric sclerae ENMT Mouth: + TMJ abnormality and + dental restorations Mallampati Class: III Neck trachea midline, no thyromegaly neck nontender Respiratory normal respiratory effort, lungs clear to auscultation normal respiratory effort; no respiratory distress Auscultation: lungs clear to auscultation bilaterally Cardiovascular RRR, no murmur, no edema Rate/Rhythm: regular rate and regular rhythm Heart Sounds: no gallop and no cardiac rub Gastrointestinal (Abdomen) normal bowel sounds, soft, nontender, no hepatosplenomegaly Musculoskeletal Head/Neck/Chest: normocephalic, head atraumatic and neck supple Extremities: + limited ROM of extremities; + extremities abnormal to inspection Skin no rashes, warm and dry + ulcer (sacral decub, with inferior tunneling, surrounding erythema) and + wound (Large sacral decubitus ulcer with some purulent debris) Neurologic moves all extremities and awake Motor/Sensory: + sensory deficit Psychiatric A+Ox3, euthymic affect Orientation: alert; + not oriented x 3 Lymphatic no cervical or axillary lymphadenopathy no inguinal lymphadenopathy Discharge Data Allergies Allergy/AdvReac Type Severity Reaction Status Date / Time levofloxacin [From Levaquin] AdvReac Intermediate lethargy Verified 07/24/19 10:36 Consultations 07/24/19 12:43 Consult Case Management - Discharge Planning Routine 07/24/19 15:40 Consult General Surgery Routine Consult Infectious Diseases Routine Consult Wound Care Provider Routine 07/24/19 16:53 Consult Anesthesiology Routine Procedures Performed Operation Date: 07/26/19 12:00 Actual Procedures p Debridement Decubitus Ulcer(Not Applicable) - Antwon Brasher MD, FACS Ordered Studies 07/25/19 08:25 CT pelvis w/IV con only Urgent Hospital Course (1) Sacral wound: Pt is 64 y/o F with PMH dementia, HTN, sacral wound presented to hospital as direct admission from wound clinic for worsening sacral wound. 07/12/2018 buttock wound culture positive Enterobacter, MSSA. L spine Xray: No acute fracture or subluxation of the lumbar spine. Age- indeterminate 20% anterior endplate compression deformity of T12. Pelvis Xray: No acute fracture, dislocation or bony erosion to suggest acute osteomyelitis. Demineralized appearance of the bones with partially obscured sacrum and coccyx limits the study. CT of pelvis shows -sacral decubitus ulcer /no evidence of osteomyelitis /no fluid collection suggestive of abscess Wound cultures 07/24: Alpha strep, not enterococcus Wound Culture 07/26: Enterococcus and Bacteroides, Finegoldia magna Blood cultures: negative General Surgery consulted, status post debridement 07/26/2019 ID consulted, was treated with Daptomycin and Zosyn IV Transitioned to ceftriaxone IV, recommended 6 weeks of IV antibiotics via PICC line will need weekly CBC, CMP, ESR while on IV antibiotics Continue wound care with wound vac (follow discharge instructions), follow-up with wound care center closely ASPIRATION RISK due to advanced Dementia Pt noted to have glenn aspiration during meal -coughing with food S/P Speech Eval: soft cut diet (2) Lewy body dementia: - mental status at baseline - Continue rivastigmine, pimavanserin (3) HTN, goal to be determined: - BP borderline, held Valsartan BP stable overall - Monitor BP off Valsartan (4) Panic disorder: - Follows with Dr Domínguez - Continue sertraline (5) Reactive airway disease: -respiratory status stable -Continue Singulair, albuterol (6) Severe protein-calorie malnutrition: Nutrition consult DVT Prophylaxis - SCDs - Lovenox - discussed with Dr. Gallardo Full Code as per discussion with pt's and pt's daughter Follows with Dr Norman for routine care Disposition stable to transfer to [facility] today ff up with Wound Care Center in 1 week Total Time Total Time Spent Total Time Spent (In Minutes): 35 mins Total Time Includes: Discharge Planning and Medication Reconciliation Discharge Plan Discharge Items Patient Disposition: Transfer [facility] Reason For Visit: SACRAL WOUND Discharge Diagnosis: INFECTED SACRAL DECUBITUS ULCER WOUND Condition on Discharge: Good Activity: Resume your previous activity Non-emergency contact: Primary Care Provider and Specialist Call non-emergency contact if: you have any medication questions, your symptoms worsen, your pain is not controlled, your pain is worsening, your pain is unusual for you, your pain is concerning for you, you have a fever, your wound has increased redness, your wound has increased drainage and your wound pain has increased Follow-up/Referrals: Frances Infante DO [Physician] - Luis Fernando Norman MD [Primary Care Provider] - Ladarius Cobb DO [Physician] - Diet: Heart Healthy Diet Texture: Dental soft (bite-sized) Addtl Attending Provider Instructions: PLEASE CHECK CBC, CMP, ESR WEEKLY WHILE ON ANTIBIOTICS PER INFECTIOUS DISEASE SPECIALIST DR. FRANCES INFANTE. FOLLOW UP WITH [facility]- DR. COBB AND INFECTIOUS DISEASE CLINIC- DR. INFANTE IN 1 WEEK. CONTACT INFORMATION OUTLINED ABOVE. PLEASE FOLLOW WOUND CARE INSTRUCTIONS. To sacral area wound, [facility] wound Vac. Trained nurse to apply, change dressing as per protocol. Irrigate sacral wound with saline using 35cc syringe and 18g blunt needle. Apply skin prep to wound periphery, allow to dry. Strongly suggest ostomy ring placed along distal edge, above anal opening. Apply drape to periphery and for bridge. Fill wound with black foam bridging trac pad, to lateral hip. Apply trac pad. set VAC to -125mmHg continuous mode. Change dressing every Tuesday, Tuesday, and Tuesday, and as needed to maintain therapy. If VAC dressing fails, remove all pieces of foam. Fill wound with Aquacell Ag and cover with Optifoam. Change every day and as needed until VAC can be replaced. Strongly suggest air fluidized bed. Turn patient at least every 2 hours, position off sacral area. Keep heels off bed surface. Requires nutrition support. PLEASE FOLLOW SPEECH THERAPY INSTRUCTIONS. Soft cut diet as tolerated. Pt wll need to be fed all meals- discontinue feeding event if any overt signs and symptoms of aspiration or difficulty noted. Verbally cue to swallow when needed and check oral cavity at completion of meal for any remaining food items. Safe swallow strategies (small bites, small sips, slow rate). Aspiration precautions. Straws ok. Aspiration Precautions - alternate solids and liquids Crush medications supervise meals Fully alert and upright Give meds in a carrier Oral hygiene Single bites/small sips/slow rate Reflux Precautions - Alternate solids and liquids Pending Studies at Discharge: Yes Studies:: PLEASE CHECK CBC, CMP, ESR WEEKLY WHILE ON ANTIBIOTICS PER INFECTIOUS DISEASE SPECIALIST DR. FRANCES INFANTE. Stand-Alone Forms: My [facility] Skilled Items Patient informed of condition?: No DNR: No Discharge Level of Care: Skilled Communicable Disease: No Discharge Prognosis: Improving Lines: PICC Urinary Catheter: No Medications and DC Order Prescriptions: New sennosides-docusate sodium [Senokot-S] 8.6-50 mg Tablet 1 tab PO QAM 30 Days Qty: 30 RF: 0 ceftriaxone 2 gram recon soln 2 gm IV DAILY 42 Days Qty: 42 RF: 0 Continued montelukast [Singulair] 10 mg tablet 10 mg PO QPM RF: 0 albuterol sulfate [ProAir HFA] 90 mcg/actuation HFA aerosol inhaler 2 puffs INH QID RF: 0 rivastigmine [Exelon] 4.6 mg/24 hr patch 24 hour 4.6 mg TD DAILY RF: 0 dicyclomine 10 mg capsule 10 mg PO QID PRN (Reason: Abdominal Pain) RF: 0 sertraline [Zoloft] 50 mg tablet 75 mg PO DAILY RF: 0 Nuplazid 34 mg capsule 34 mg PO DAILY RF: 0 lorazepam 0.5 mg Tablet 0.5 mg PO BID PRN (Reason: Other) RF: 0 Discontinued fluocinonide 0.05 % cream 1 appln TOP BID RF: 0 valsartan [Diovan] 160 mg tablet 160 mg PO PM RF: 0 clobetasol 0.05 % foam 1 appln TOP BID RF: 0 cefdinir 300 mg capsule 300 mg PO BID Qty: 28 RF: 1 Discharge Orders: Discharge Order (Routine); Ordered 08/02/19 Ordered By: Coby Flores Admission Data Admit Date/Time: 07/24/19 12:20 Attending Provider: Coby Flores Admit Provider: Robert Padilla Primary Care Provider: Luis Fernando Norman Other Providers: Stew Diehl [place] ; Coby Flores ; Antwon Brasher ; Frances Infante ; Ladarius Cobb ; Mendoza Rojo
[2019-08-02] MEDS: cefTRIAXone SODIUM 2,000 MG in DEXTROSE 5% 50 ML IV SCH (14:47)
== END 2019-08-02 16:12 | DRG 579 ==
LOC: SUATTDRO 12:20 → 2N 12:20 → 3N 07-26 14:53